=== PATIENT | female | born 1940 | race Caucasian/White ===

== ENCOUNTER 2016-03-24 11:19 | Outpatient (CLI) | payer MEDICARE | END 2016-03-24 11:20 | disposition home or self-care (01) | DX: I73.9 Peripheral vascular disease, unspecified (principal); Z87.891 Personal history of nicotine dependence; R20.9 Unspecified disturbances of skin sensation; M81.0 Age-related osteoporosis without current pathological fracture ==

== ENCOUNTER 2016-03-24 11:22 | Outpatient (CLI) | payer MEDICARE | END 2016-03-24 11:23 | disposition home or self-care (01) | DX: M81.0 Age-related osteoporosis without current pathological fracture (principal) ==

== ENCOUNTER 2016-11-19 14:11 | Outpatient (CLI) | payer MEDICARE ==
--- NOTE | 2016-11-19 17:06 | XRAY Report ---
TWO VIEW CHEST: 11/19/2016 CLINICAL INDICATION: Lung cancer followup. COMPARISON: Chest CT of 05/21/2016. FINDINGS: Frontal and lateral views of the chest demonstrate postoperative changes in the right lung , with volume loss and elevation of the right hemidiaphragm, stable. No new infiltrate, effusion, or pneumothorax is seen. The cardiac silhouette is not enlarged. IMPRESSION: STABLE POSTOPERATIVE CHANGES IN THE RIGHT CHEST. NO SIGNIFICANT INTERVAL CHANGE. JOB #: [id number] EXT JOB #:[id number]
== END 2016-11-19 14:12 | disposition home or self-care (01) ==
LOC: DI 14:11
PROVIDERS: ATTEND Internal Medicine Hematology & Oncology
DX: C34.90 Malignant neoplasm of unspecified part of unspecified bronchus or lung (principal)
CPT/HCPCS: 71020

== ENCOUNTER 2017-01-23 09:07 | Emergency (ER) | payer MEDICARE ==
--- NOTE | 2017-01-23 10:03 | ED Physician Documentation ---
PD HPI ABD PAIN - Stated complaint Stated Complaint: CONSTIPATED FOR 12 DAYS - Chief complaint Chief Complaint: Abd Pain - History obtained from History obtained from: Patient - History of Present Illness Timing - onset: How many days ago (has not had BM for the past 12 days. Has no urge to want to go. Denies numbness, nausea, dysuria, abd pain nor distension. Common is for her to have BM every 1-2 days. No recent illness. No unusual foods.) Timing - duration: Days (12) Timing - details: Gradual onset, Still present Quality: Dull, Pain. No: Cramping, Aching Location: Suprapubic Radiation: No: Chest, Lower back, Left flank, Right flank Improved by: No: Eating, Position Worsened by: No: Eating, Moving, Breathing, Position, Palpation Associated symptoms: No: Weight loss Similar symptoms before: Has not had sx before Review of Systems Constitutional: denies: Fever, Chills Cardiac: denies: Chest pain / pressure, Calf pain GI: reports: Abdominal Pain (mild at times). denies: Abdominal Swelling, Nausea , Vomiting : denies: Dysuria, Frequency PD PAST MEDICAL HISTORY - Past Medical History Cardiovascular: None, Valve disorder Respiratory: Other Neuro: None Endocrine/Autoimmune: None GI: Chronic constipation : None HEENT: None Psych: None Musculoskeletal: None Derm: None - Past Surgical History Past Surgical History: Yes General: Appendectomy, Colonoscopy, Other /[employer] J[employer]NEY[employer]: Hysterectomy HEENT: Cataracts, Tonsil/Adenoidectomy - Present Medications Home Medications: Ambulatory Orders Medication Instructions Recorded Confirmed Multivitamin [Multivitamins] 1 each PO DAILY 11/26/15 01/23/17 Alphalapoic Acid 1 tab PO DAILY 12/21/15 01/23/17 Ascorbic Acid [Vitamin C] 1 tab PO DAILY 12/21/15 01/23/17 Cholecalciferol (Vitamin D3) 1,000 unit PO DAILY 12/21/15 01/23/17 [Vitamin D3] Flaxseed Oil 1,000 mg PO DAILY 12/21/15 01/23/17 Vitamin E 400 unit PO DAILY 12/21/15 01/23/17 B12/Levomefolate Calcium/B-6 1 each PO DAILY 01/23/17 01/23/17 [Foltx Tablet] Ginkgo Biloba [place] Extract [Ginkgo 1 tab PO DAILY 01/23/17 01/23/17 Biloba Extract] Polyethylene Glycol 3350 [Miralax] 17 gm PO Q2H PRN #238 g 01/23/17 - Allergies Allergies/Adverse Reactions: Allergies Allergy/AdvReac Type Severity Reaction Status Date / Time hexachlorophene Allergy blisters Verified 01/23/17 09:13 [From Phisohex] Penicillins Allergy Rash Verified 01/23/17 09:13 metronidazole [From Flagyl] AdvReac Nausea Verified 01/23/17 09:13 Metronidazole HCl * AdvReac Nausea Verified 01/23/17 09:13 [From Flagyl] Sulfa (Sulfonamide AdvReac Respiratory Verified 01/23/17 09:13 Antibiotics) cat gut Allergy Hives Uncoded 05/18/13 20:33 - Social History Does the pt smoke?: Yes Smoking Status: Current every day smoker Does the pt drink ETOH?: No Does the pt have substance abuse?: No - Immunizations Immunizations are current?: No - POLST Patient has POLST: Yes PD ED PE NORMAL - Vitals Vital signs reviewed: Yes - General General: Alert and oriented X 3, Well developed/nourished - HEENT HEENT: Pharynx benign - Neck Neck: Supple, no meningeal sign, No adenopathy - Cardiac Cardiac: RRR, No murmur - Respiratory Respiratory: Clear bilaterally - Abdomen Abdomen: Normal bowel sounds, Soft, Non tender, Non distended, No organomegaly - Female Female : Deferred - Rectal Rectal: Deferred - Back Back: No CVA TTP - Derm Derm: Normal color, Warm and dry - Neuro Neuro: Alert and oriented X 3, No motor deficit, Normal speech Results - Vitals Vitals: Vital Signs - 24 hr 01/23/17 01/23/17 01/23/17 09:08 11:17 12:04 Temperature 36.4 C L 36.6 C Heart Rate 96 77 78 Respiratory 16 14 12 Rate Blood Pressure 157/88 H 155/67 H 129/51 L O2 Saturation 100 98 97 01/23/17 12:40 Temperature 36.6 C Heart Rate 90 Respiratory 17 Rate Blood Pressure 139/57 H O2 Saturation 98 Oxygen O2 Source Room air PD MEDICAL DECISION MAKING - ED course Complexity details: re-evaluated patient (given mineral oil enema with only small stool out. Mag citrate orally. She is not having distension, pain, vomiting. Can work on it outpatient. Nurse reports no stool in vault with the enema. ), considered differential, d/w patient Departure - Departure Disposition: 01 Home, Self Care Clinical Impression: Constipation Qualifiers: Constipation type: slow transit constipation Qualified Code(s): K59.01 - Slow transit constipation Condition: Stable Record reviewed to determine appropriate education?: Yes Instructions: ED Constipation Follow-Up: Gideon Serrano MD [Primary Care Provider] - Prescriptions: Polyethylene Glycol 3350 [Miralax] 17 gm PO Q2H PRN #238 g PRN Reason: Constipation Comments: Drink the other half of the magnesium citrate in 2-3 hours if not having stool as yet. You could then follow it with the MiraLAX one dose every couple of hours until having some stool output. Do not overdo as he do not want to get diarrhea per se. Continue with the MiraLAX once or twice daily for the next week after that. Recheck with primary care if still no stool output into tomorrow. Discharge Date/Time: 01/23/17 12:42
[2017-01-23] MEDS ORDERED: MAGNESIUM CITRATE 296 ML BOTTLE PO ONE (10:26)
[2017-01-23] MEDS ORDERED: MAGNESIUM CITRATE 296 ML BOTTLE PO PRN (10:26)
[2017-01-23] MEDS ORDERED: MINERAL OIL ENEMA 133 ML BOTTLE RC STA (10:26)
[2017-01-23 12:41] VITALS: BP 139/57
== END 2017-01-23 12:42 | disposition home or self-care (01) ==
LOC: ED 09:07
DX: K59.01 Slow transit constipation (principal); F17.200 Nicotine dependence, unspecified, uncomplicated
CPT/HCPCS: 99283; A9270

== ENCOUNTER 2017-11-18 12:33 | Outpatient (CLI) | payer MEDICARE ==
--- NOTE | 2017-11-18 17:10 | CT Report ---
Reason: LUNG CA Procedure Date: 11/18/2017 Accession Number: [id number] / [id number] Procedure: CT - Chest W/O CPT Code: FULL RESULT: EXAM: CT CHEST EXAM DATE: 11/18/2017 12:55 PM. CLINICAL HISTORY: LUNG CA. COMPARISONS: 05/25/2015 and 05/21/2017. TECHNIQUE: Routine helical CT imaging was performed through the chest. IV contrast: None. Reconstructions: Coronal and sagittal. In accordance with CT protocol optimization, one or more of the following dose reduction techniques were utilized for this exam: automated exposure control, adjustment of mA and/or KV based on patient size, or use of iterative reconstructive technique. FINDINGS: Lungs/Pleura: The left apical nodule has increased minimally since most recent previous study, measuring about 9 x 19 mm on series 4 image 12 compared to about 8 x 17 mm on the previous study with comparable measurement. Additionally, there is increased size of a right apical nodule measuring about 8 x 5 mm on image 15 compared to 8 x 4 mm in previous study. An ill-defined region of groundglass density in the right lower lobe on images 23 through 29 has not clearly changed. No definite new lesions. No effusion or pneumothorax. Scarring and volume loss on the right. Mediastinum: Normal heart size. No pericardial effusion. No definite coronary artery calcifications. No lymphadenopathy. Bones: Unremarkable. Visualized Abdomen: Unremarkable. Other: None. IMPRESSION: Increased size of small bilateral apical nodules compatible with metastatic or recurrent neoplasm. RADIA
== END 2017-11-18 12:34 | disposition home or self-care (01) ==
LOC: DI 12:33
PROVIDERS: ATTEND Internal Medicine Hematology & Oncology
DX: C34.90 Malignant neoplasm of unspecified part of unspecified bronchus or lung (principal)
CPT/HCPCS: 71250

== ENCOUNTER 2018-05-01 10:08 | Outpatient (CLI) | payer MEDICARE ==
[2018-05-01 10:29] LABS: HGB - HEMOGLOBIN 11.2 g/dL (12.0-16.0); MEAN CORPUSCULAR HEMOGLOBIN 30.8 pg (27.0-31.0); MEAN CORPUSCULAR HGB CONC 33.7 g/dL (32.0-36.0); MEAN CORPUSCULAR VOLUME 91.3 fL (81.0-99.0); MEAN PLATELET VOLUME 10.7 fL (7.9-10.8); RED BLOOD COUNT 3.65 10^6/uL (4.20-5.40); RED CELL DISTRIBUTION WIDTH 19.1 % (12.0-15.0)
[2018-05-01 10:46] LABS: ALBUMIN 3.9 g/dL (3.2-5.5); ALBUMIN/GLOBULIN RATIO 1.3 (1.0-2.2); BILIRUBIN,TOTAL 1.4 mg/dL (0.2-1.0); CALCIUM 9.5 mg/dL (8.5-10.3); CREATININE 1.1 mg/dL (0.4-1.0); TOTAL PROTEIN 6.9 g/dL (6.7-8.2)
[2018-05-01 11:03] LABS: FERRITIN 243.4 ng/mL (11.0-306.8)
[2018-05-01 12:02] LABS: FOLATE > 49.60 ng/mL (5.90 - >24.8)
--- NOTE | 2018-05-03 14:58 | CT Report ---
Reason: LUNG CA Procedure Date: 05/01/2018 Accession Number: [id number] / [id number] Procedure: CT - CHEST WO CPT Code: FULL RESULT: EXAM: CT CHEST EXAM DATE: 05/01/2018 11:41 AM. CLINICAL HISTORY: Lung cancer. COMPARISONS: Chest w/o contrast 01/11/2018 11:[address] thorax w/ contrast 04/23/2012 2:43 PM. Chest w/o contrast 11/18/2017 12:54 PM. Chest w/o contrast 05/21/2017 1:35 PM. TECHNIQUE: Routine helical CT imaging was performed through the chest. IV contrast: None. Reconstructions: Coronal and sagittal. In accordance with CT protocol optimization, one or more of the following dose reduction techniques were utilized for this exam: automated exposure control, adjustment of mA and/or KV based on patient size, or use of iterative reconstructive technique. FINDINGS: Lungs/Pleura: The suspicious nodule in the left lung apex is now evaluated on image 28 series 6 and image 14 series 4, where it measures 2.7 x 1.4 x 0.9 cm with short-term interval differences possibly due to inspiration/technique. A 4 mm spiculated nodularity in the left upper lobe on image 26 appears similar to May 2017, and is new compared to 2013. There is a sub-solid 0.9 cm left upper lobe nodularity on image 21 series 4 which has not significantly changed going back to 2013. Right lower lobe postoperative changes are stable. Apical nodular scarring appears stable. Nodular thickening of the posterior right lung on image 13, stable. No pleural effusion or pneumothorax. Mediastinum: Atherosclerotic disease without lymphadenopathy. Bones: Unremarkable. Visualized Abdomen: Unremarkable. Other: None. IMPRESSION: Short interval stability of lung nodules. RADIA
== END 2018-05-01 10:09 | disposition home or self-care (01) ==
LOC: DI 10:08
PROVIDERS: ATTEND Internal Medicine Hematology & Oncology
DX: C34.12 Malignant neoplasm of upper lobe, left bronchus or lung (principal); C34.11 Malignant neoplasm of upper lobe, right bronchus or lung
CPT/HCPCS: 36415; 71250; 80053; 82607; 82728; 82746; 83540; 84466; 85027

== ENCOUNTER 2018-05-15 11:11 | Outpatient (CLI) | payer MEDICARE | END 2018-05-15 11:12 | disposition home or self-care (01) | LOC: DI 11:11 | PROVIDERS: ATTEND Physician Assistant Medical | DX: R01.1 Cardiac murmur, unspecified (principal); I35.0 Nonrheumatic aortic (valve) stenosis | CPT/HCPCS: 93306 ==

== ENCOUNTER 2018-06-01 11:14 | Outpatient (CLI) | payer MEDICARE ==
--- NOTE | 2018-06-01 20:41 | Nuclear Medicine Report ---
Reason: LUNB CANCER, INCREASE BONE PAIN Procedure Date: 06/01/2018 Accession Number: [id number] / [id number] Procedure: NM - Bone Whole Body CPT Code: FULL RESULT: EXAM: BONE SCAN EXAM DATE: 06/01/2018 03:28 PM. CLINICAL HISTORY: LUNG CANCER, INCREASE BONE PAIN. COMPARISON: CHEST W/O 05/01/2018 11:40 AM. TECHNIQUE: Following the intravenous administration of 32.7 mCi of technetium 99m MDP and an appropriate delay, a whole-body scan was performed in anterior and posterior projections. Site-specific spot views of the region of interest were obtained in various projections. FINDINGS: Exam Quality: Normal overall osseous radiotracer uptake. Physiological tracer uptake in bilateral collecting systems. Skull: No focal uptake. Thorax: No focal lesions in ribs or sternum. Pelvis: No focal lesions. Spine: No focal uptake in the cervical or thoracic or lumbar spine. IMPRESSION: Normal bone scan. RADIA
== END 2018-06-01 11:15 | disposition home or self-care (01) ==
LOC: DI 11:14
PROVIDERS: ATTEND Nurse Practitioner Adult Health
DX: C34.11 Malignant neoplasm of upper lobe, right bronchus or lung (principal); C34.12 Malignant neoplasm of upper lobe, left bronchus or lung; M89.8X9 Other specified disorders of bone, unspecified site
CPT/HCPCS: 78306

== ENCOUNTER 2018-06-29 12:54 | Outpatient (CLI) | payer MEDICARE ==
[2018-06-29 19:19] LABS: BASOPHILS # (AUTO) 0.1 10^3/uL (0.0-0.1); BASOPHILS % (AUTO) 0.7 %; EOSINOPHILS # (AUTO) 0.1 10^3/uL (0.0-0.7); HGB - HEMOGLOBIN 10.8 g/dL (12.0-16.0); LYMPHOCYTES # (AUTO) 2.3 10^3/uL (1.5-3.5); MEAN CORPUSCULAR HEMOGLOBIN 29.9 pg (27.0-31.0); MEAN CORPUSCULAR HGB CONC 32.4 g/dL (32.0-36.0); MEAN CORPUSCULAR VOLUME 92.3 fL (81.0-99.0); MEAN PLATELET VOLUME 11.9 fL (7.9-10.8); MONOCYTES # (AUTO) 0.6 10^3/uL (0.0-1.0); MONOCYTES % (AUTO) 5.8 %; NEUTROPHILS # (AUTO) 8.2 10^3/uL (1.5-6.6); NEUTROPHILS % (AUTO) 72.5 %; PLT - PLATELET COUNT 344 10^3/uL (130-450); RED CELL DISTRIBUTION WIDTH 20.3 % (12.0-15.0); WHITE BLOOD COUNT 11.3 x10^3/uL (4.8-10.8)
[2018-06-29 19:30] LABS: ALBUMIN 3.8 g/dL (3.2-5.5); ALBUMIN/GLOBULIN RATIO 1.4 (1.0-2.2); CALCIUM 9.7 mg/dL (8.5-10.3); PHOSPHORUS 4.3 mg/dL (2.5-4.6); TOTAL PROTEIN 6.6 g/dL (6.7-8.2)
[2018-06-29 19:47] LABS: PLATELET ESTIMATE, MANUAL NORMAL (130-450,000) (NORMAL); PLATELET MORPHOLOGY RARE GIANT PLATELETS (NORMAL)
== END 2018-06-29 12:55 | disposition home or self-care (01) ==
LOC: LAB.WCP 12:54
PROVIDERS: ATTEND Physician Assistant Medical
DX: C34.91 Malignant neoplasm of unspecified part of right bronchus or lung (principal); M79.10 Myalgia, unspecified site; J34.89 Other specified disorders of nose and nasal sinuses
CPT/HCPCS: 36415; 80053; 82550; 84100; 85025

== ENCOUNTER 2018-07-26 10:39 | Outpatient (CLI) | payer MEDICARE ==
--- NOTE | 2018-07-26 14:42 | CT Report ---
Reason: LUNG CA Procedure Date: 07/26/2018 Accession Number: [id number] / [id number] Procedure: CT - CHEST WO CPT Code: FULL RESULT: EXAM: CT CHEST WITHOUT IV CONTRAST EXAM DATE: 07/26/2018 11:01 AM. CLINICAL HISTORY: Lung cancer. COMPARISONS: 05/01/2018, 05/21/2017, 04/23/2012. TECHNIQUE: Routine helical CT imaging was performed through the chest. IV contrast: None. Reconstructions: Coronal and sagittal. In accordance with CT protocol optimization, one or more of the following dose reduction techniques were utilized for this exam: automated exposure control, adjustment of mA and/or KV based on patient size, or use of iterative reconstructive technique. FINDINGS: Lungs/Pleura: Right lun. 10 x 10 x 13 mm irregular mass right upper lobe (reference series 4 image 19) shows progressive increase in volume over serial exams and is new since study of 2012; most recently it measured 7 x 7 x 10 mm. 2. 2.3 cm ground-glass opacity/nodule right upper lobe (reference series 7 image 44) unchanged since 05/21/2017, but new since 2012. 3. Stable operative changes after wedge resections with multiple lung staple lines and mild right-sided volume loss. Stable apical pleural thickening/scar. Left lun. 27 x 14 x 10 mm mixed solid/semisolid pulmonary nodule is unchanged since 05/21/2017 but increased in size since 2012. 2. Stable 8 mm semisolid nodule left upper lobe (series 4 image 24) since 2012. 3. Stable irregular 4 mm nodule left upper lobe (series 4 image 30), no change since 05/21/2017, new since 2012. Mediastinum: Normal. No adenopathy or masses. The heart and great vessels are normal. Bones: Unremarkable. Visualized Abdomen: Stable mild prominence of the extrahepatic common bile duct at 7 mm. Other: None. IMPRESSION: 1. Bilateral imaging progression of solid and semisolid pulmonary nodules/masses as described, consistent with progression of malignancy. Most of the described findings show very slow progression only evident when comparing back to 2013; however, the most rapidly increasing/concerning mass is in the right upper lobe, as described (series 4 image 19). RADIA
== END 2018-07-26 10:40 | disposition home or self-care (01) ==
LOC: DI 10:39
PROVIDERS: ATTEND Internal Medicine Hematology & Oncology
DX: C34.12 Malignant neoplasm of upper lobe, left bronchus or lung (principal); C34.11 Malignant neoplasm of upper lobe, right bronchus or lung
CPT/HCPCS: 71250

== ENCOUNTER 2019-11-17 08:42 | Day surgery (SDC) | payer MEDICARE ==
[2019-11-17] MEDS ORDERED: LACTATED RINGERS 1,000 ML IV ONE ×2 (09:19→11:15)
--- NOTE | 2019-11-17 10:00 | ANESTHESIA ---
Pre-Anesthesia VS, & Labs - Diagnosis change in bowel habits, prolapsing hemorrhoids. - Procedure colonoscopy with hemorrhoid banding Vital Signs: Temp Pulse Resp BP Pulse Ox 36.3 C L 73 16 193/95 H 100 11/17/19 09:04 11/17/19 09:04 11/17/19 09:04 11/17/19 09:04 11/17/19 09:04 Height 5 ft 4 in Weight (kg) 50.9 kg Body Mass Index 20.1 - NPO >8 hours - Is Patient ?: No Home Medications and Allergies Home Medications: Ambulatory Orders Alpha Lipoic Acid 100 mg PO DAILY 11/07/19 Vitamin B Complex 1 each PO DAILY 11/07/19 Multivitamin [Multivitamins] 1 each PO DAILY 11/26/15 Ascorbic Acid [Vitamin C] 1 tab PO DAILY 12/21/15 Cholecalciferol (Vitamin D3) [Vitamin D3] 3,000 unit PO DAILY 12/21/15 Vitamin E 400 unit PO DAILY 12/21/15 Ginkgo Biloba [place] Extract [Ginkgo Biloba Extract] 1 tab PO DAILY 01/23/17 Ubidecarenone/Vit E Acet [Co Q-10 100 mg Softgel] 1 cap PO DAILY 06/07/18 Alpha Lipoic Acid 100 mg PO DAILY 11/07/19 Vitamin B Complex 1 each PO DAILY 11/07/19 Allergies/Adverse Reactions: Allergies Allergy/AdvReac Type Severity Reaction Status Date / Time hexachlorophene Allergy blisters Verified 10/24/19 10:51 [From Phisohex] Penicillins Allergy Rash Verified 10/24/19 10:51 metronidazole [From Flagyl] AdvReac Nausea Verified 10/24/19 10:51 Metronidazole HCl * AdvReac Nausea Verified 10/24/19 10:51 [From Flagyl] Sulfa (Sulfonamide AdvReac Respiratory Verified 10/24/19 10:51 Antibiotics) cat gut Allergy Hives Uncoded 10/24/19 10:51 Anes History & Medical History - Anesthetic History Anesthesia Complications: reports: No previous complications - Medical History Cardiovascular: reports: Murmur, Valve disorder (Mild aortic stenosis, 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%) Pulmonary: reports: Emphysema, Shortness of breath Gastrointestinal: reports: Colon polyps, Chronic constipation, Hemorrhoids Urinary: reports: None Neuro: reports: None Musculoskeletal: reports: Osteoarthritis Endocrine/Autoimmune: reports: None Skin: reports: Rosacea Smoking Status: Current every day smoker (1/2 pk per day for 60 years) - Surgical History General: Appendectomy, Colonoscopy, Other Eyes Ears Nose Throat (EENT): Cataracts, Tonsil/Adenoidectomy Gynecologic: Hysterectomy Exam General: Alert, Oriented x3, Cooperative, No acute distress Dental: Poor dentition Mouth Openin Fingerbreadth Neck Mobility: Normal Mallampati classification: II Respiratory: Lungs clear, Normal breath sounds, No respiratory distress, No accessory muscle use Cardiovascular: Regular rate, Normal S1, Normal S2, No murmurs Mental/Cognitive Status: Alert/Oriented X3, Normal for patient Plan Anesthesia Type: MAC Consent for Procedure(s) Verified and Reviewed: Yes Code Status: Attempt Resuscitation ASA classification: 2-Mild systemic disease Is this case an emergency?: No
--- NOTE | 2019-11-17 11:24 | ANESTHESIA POST OP EVALUATION ---
Anesthesia Post Eval - Post Anesthesia Eval Vitals: Last Vital Signs Temp 36.3 C L 11/17/19 09:04 Pulse 73 11/17/19 09:04 Resp 16 11/17/19 09:04 BP 193/95 H 11/17/19 09:04 Pulse Ox 100 11/17/19 09:04 CV Function Including HR & BP: positive: Stable Pain Control: positive: Satisfactory Nausea & Vomiting: positive: Negative Mental Status: positive: Baseline Respiratory Status: Airway Patent Hydration Status: Satisfactory Anesthesia Complications: positive: None
[2019-11-17 12:05] VITALS: BP 145/75
--- NOTE | 2019-11-24 16:08 | OPERATIVE REPORT ---
Operative Report - General Procedure Date: 11/17/19 Planned Procedure: Internal hemorrhoid banding Pre-Op Diagnosis: Prolapsing internal hemorrhoids Procedure Performed: Internal hemorrhoid banding Post Op Diagnosis: Prolapsing internal hemorrhoids - Procedure Note Primary Surgeon: Marc Anesthesia Provider: BRAYDON Kamara Anesthesia Technique: MAC Pathology: None Estimated Blood Loss (mL): 0 Complications: None apparent - Other Other Information/Narrative: Colonoscopy was completed immediately prior to the banding procedure. Timeout was done at the start of the colonoscopy procedure.The patient remained sedated with monitored anesthesia care at this time. All elements of the surgical safety checklist were followed before, during, and after this procedure. The anoscope with obturator was lubricated and placed in the patient's anal canal. The obturator was removed and the slots aligned to allow access to 3 column internal hemorrhoids. The device, the [employer] multi band ligator-short shot-was placed into the anal canal. The tip of the device was placed in contact with the tissue to be treated beginning at the 4 o'clock position. The suction port was closed. A single band was deployed and the suction port released.The band was noted to be in place.We next addressed the hemorrhoid complex at 7:00.The tip of the device was placed in contact with the tissue, the suction port covered, a band deployed, the suction port released. Again we were able to see that the band was in place.We next addressed the hemorrhoid at the 11 o'clock position. This was the smallest of the 3. The tip of the device was placed in contact with the tissue, the suction port covered, a band deployed, the suction port released. Again we were able to see that the band was in place.Examination of the anal count canal revealed all [address] The anoscope was removed and the procedure concluded. The patient tolerated the procedure well. She was allowed awaken from sedation and taken to the post anesthesia care unit in good condition.
== END 2019-11-17 08:43 | disposition home or self-care (01) ==
LOC: SDS 08:42
PROVIDERS: ATTEND Surgery
PROC: 0DBP8ZZ Excision of Rectum, Via Natural or Artificial Opening Endoscopic (ICD-10-PCS; 2019-11-17)
PROC: 06LY3CC Occlusion of Hemorrhoidal Plexus with Extraluminal Device, Percutaneous Approach (ICD-10-PCS; 2019-11-17)
PROC: 0DBN8ZZ Excision of Sigmoid Colon, Via Natural or Artificial Opening Endoscopic (ICD-10-PCS; principal; 2019-11-17 10:00)
DX: K63.5 Polyp of colon (principal); K62.1 Rectal polyp; K64.8 Other hemorrhoids; K57.30 Diverticulosis of large intestine without perforation or abscess without bleeding; K64.4 Residual hemorrhoidal skin tags; I10 Essential (primary) hypertension; J43.9 Emphysema, unspecified; C34.90 Malignant neoplasm of unspecified part of unspecified bronchus or lung; M32.9 Systemic lupus erythematosus, unspecified; I77.6 Arteritis, unspecified; R01.1 Cardiac murmur, unspecified; Z90.2 Acquired absence of lung [part of]; F17.210 Nicotine dependence, cigarettes, uncomplicated
CPT/HCPCS: 45380; 46221; J7120

== ENCOUNTER 2020-04-30 10:29 | Outpatient (CLI) | payer MEDICARE ==
--- NOTE | 2020-04-30 11:19 | CT Report ---
PROCEDURE: CHEST WO INDICATIONS: LUNG CA TECHNIQUE: Noncontrast 5 mm thick sections acquired from the pulmonary apices to the posterior costophrenic angl es. 7 mm thick coronal and sagittal MIP reformats were then acquired. For radiation dose reduction, the following was used: automated exposure control, adjustment of mA and/or kV according to patient size. COMPARISON: 10/25/2019, 04/19/2019, 12/13/2018, 07/26/2018. FINDINGS: Image quality: Excellent. Redemonstrated right apical spiculated nodule image 61/4 appears increased in size since the most rec ent prior study now measuring 1.6 x 1.3 cm, previously 1.5 x 1.1 cm. Right posterior apical pleural n odule measuring 1.7 x 1.4 cm, previously 1.5 x 0.8 cm is increased. Additional medial left apical nodule measuring 1.5 x 1.1 cm, previously 1.5 x 1.1 cm, grossly unchang ed. Elsewhere, no acute consolidation is seen. Diffuse peribronchial cuffing suggestive of nonspecific br onchitis and/or reactive airways disease. Postsurgical changes related to previous right partial pneu monectomy. Scattered subsegmental scarring/atelectasis. No acute consolidation. Diffuse emphysema an d chronic ectasis. Mediastinum: Heart size is normal. No pericardial effusion. No mediastinal adenopathy by size crit eria. Thoracic aorta and central pulmonary arteries are normal in size. Esophagus is normal in marie samantha. No hiatal hernia. Bones and chest wall: No suspicious bony lesions. No vertebral body compression fractures. No axil melanie or supraclavicular adenopathy by size criteria. The thyroid is normal in size. Abdomen: Visualized upper abdominal solid organs and bowel loops appear normal in the absence of con trast. IMPRESSION: Slight increase in right apical spiculated nodule, and additional posterior right upper lobe pleural nodule, since 10/25/2019. Findings suggest active bronchogenic neoplasm/metastatic disease. Previous r ight partial pneumonectomy Additional left upper lobe spiculated nodule appears grossly unchanged. Diffuse emphysematous changes and bronchiectasis as before. Diffuse peribronchial cuffing suggestive of nonspecific bronchitis and/or reactive airways disease. Reviewed by: Idris Orantes MD on 04/30/2020 11:18 AM PST Approved by: Idris Orantes MD on 04/30/2020 11:18 AM PST Station ID: [id number]
== END 2020-04-30 10:30 | disposition home or self-care (01) ==
LOC: DI 10:29
PROVIDERS: ATTEND Internal Medicine Hematology & Oncology
DX: C34.90 Malignant neoplasm of unspecified part of unspecified bronchus or lung (principal); R91.1 Solitary pulmonary nodule; J43.9 Emphysema, unspecified; J47.9 Bronchiectasis, uncomplicated

== ENCOUNTER 2020-10-29 12:55 | Outpatient (CLI) | payer MEDICARE ==
--- NOTE | 2020-10-30 14:44 | CT Report ---
PROCEDURE: CHEST WO INDICATIONS: LUNG CA TECHNIQUE: Noncontrast images were acquired from the pulmonary apices to the posterior costophrenic angles. Mul tiplanar MIP reformats were then acquired. For radiation dose reduction, the following was used: au tomated exposure control, adjustment of mA and/or kV according to patient size. COMPARISON: CT chest 04/30/2020, 10/25/2019, 04/19/2019. FINDINGS: Image quality: Excellent. Lungs and pleura: Postsurgical changes are redemonstrated status post right lower lobectomy. There i s progressive increase in size of a right upper lobe suprahilar spiculated nodule measuring up to 2.7 x 1.7 cm in transverse dimension on series 4 image 61 compared to 1.6 x 1.3 cm on the previous study . There is pleural thickening redemonstrated within the lung apices I laterally with a posterior nodu lar component measuring up to approximately 1.6 x 1.0 cm on series 4 image 37 compared to possible 0. 7 x 1.4 cm previously. The findings are similar in size compared to the previous exam given differenc es in slice acquisition. Medially within the left upper lobe, there is a subpleural nodule measuring approximately 1.6 x 1.1 cm on series 4 image 52 which appears similar in size compared to the prior s tudies. Within the left upper lobe, there is a nodule on series 4 image 123 measuring up to 0.8 cm wh ich appears progressively increased in size compared to the recent prior studies. A few indistinct ad ditional groundglass opacities within the lungs appears similar to the prior study. Small areas of pl eural thickening are also redemonstrated bilaterally. There are mild centrilobular emphysematous card ges. Mediastinum: Heart size is normal. No pericardial effusion. No mediastinal adenopathy by size crit eria. Thoracic aorta and central pulmonary arteries are normal in size. Esophagus is normal in marie samantha. There is a small hiatal hernia. Bones and chest wall: No suspicious bony lesions. No vertebral body compression fractures. No axil melanie or supraclavicular adenopathy by size criteria. There are surgical clips in the right breast. T he thyroid demonstrates no focal dominant nodules. Abdomen: Visualized upper abdominal solid organs and bowel loops appear normal in the absence of con trast. IMPRESSION: 1. Progressive increase in size of a suprahilar nodule in the right upper lobe consistent with progre ssion of recurrent or metastatic disease. 2. Progressive increase in size of a left upper lobe 0.8 cm nodule consistent with progression of met astatic disease. 3. Bilateral pleural thickening including a nodular component posteriorly in the right apex as well a s a subpleural nodule in the left upper lobe appears similar to the recent prior studies. The finding s are nonspecific and may represent posttreatment changes but recurrent or metastatic disease are not excluded. 4. No evidence of lymphadenopathy in the chest by size criteria. Reviewed by: Robert Jones MD on 10/30/2020 2:43 PM PDT Approved by: Robert Jones MD on 10/30/2020 2:43 PM PDT Station ID: [id number]
== END 2020-10-29 12:56 | disposition home or self-care (01) ==
LOC: DI 12:55
PROVIDERS: ATTEND Physician Assistant
DX: C34.90 Malignant neoplasm of unspecified part of unspecified bronchus or lung (principal); R91.8 Other nonspecific abnormal finding of lung field

== ENCOUNTER 2020-11-15 10:30 | Outpatient (CLI) | payer MEDICARE | END 2020-11-15 23:59 | disposition home or self-care (01) | LOC: COV 10:30 | PROVIDERS: ATTEND Physician Assistant Medical | DX: Z20.822 Contact with and (suspected) exposure to COVID-19 (principal) ==

== ENCOUNTER 2020-11-15 10:42 | Outpatient (CLI) | payer MEDICARE ==
[2020-11-15 18:16] LABS: CALCIUM 10.6 mg/dL (8.5-10.3); CREATININE 0.9 mg/dL (0.4-1.0); POTASSIUM 4.3 mmol/L (3.5-5.0)
== END 2020-11-15 23:59 | disposition home or self-care (01) ==
LOC: LAB.WCP 10:42
PROVIDERS: ATTEND Physician Assistant Medical
DX: I10 Essential (primary) hypertension (principal); Z20.822 Contact with and (suspected) exposure to COVID-19
CPT/HCPCS: 36415; 80048; U0004

== ENCOUNTER 2020-11-23 10:15 | Outpatient (CLI) | payer MEDICARE | END 2020-11-23 23:59 | disposition home or self-care (01) | LOC: LAB.WCP 10:15 | PROVIDERS: ATTEND Physician Assistant Medical | DX: E83.52 Hypercalcemia (principal) | CPT/HCPCS: 36415; 83970 ==

== ENCOUNTER 2020-11-29 10:37 | Outpatient (CLI) | payer MEDICARE ==
--- NOTE | 2020-11-29 11:56 | XRAY Report ---
PROCEDURE: Ribs w/PA Chest RT INDICATIONS: RIB PAIN RIGHT SIDED TECHNIQUE: 4 views of the right ribs were acquired, along with a single view chest. COMPARISON: CT chest dated 10/29/2020 FINDINGS: Surgical changes and devices: None. Bones and chest wall: No fractures or dislocations. No suspicious bony lesions. Overlying soft tis sues appear unremarkable. Lungs and pleura: Ill-defined right apical pulmonary density compatible with irregular apical densit y seen on comparison CT. Stable posterior changes of the right hemithorax. Irregular density over the medial aspect of the left apex also compatible with density seen on comparison CT. Stable pleural th ickening of the right costophrenic angle. No pneumothorax. Mediastinum: Mediastinal contours appear stable. Heart size is normal. IMPRESSION: No acute right-sided rib fractures correlating with skin markers denoting areas of patient's pain. No suspicious osseous lesions. Stable postsurgical changes of the right hemithorax. Stable nodular densities of the bilateral lung apices. No acute airspace disease. Reviewed by: Adolfo Valle MD on 11/29/2020 11:55 AM PDT Approved by: Adolfo Valle MD on 11/29/2020 11:55 AM PDT Station ID: [id number]
== END 2020-11-29 10:38 | disposition home or self-care (01) ==
LOC: DI 10:37
PROVIDERS: ATTEND Physician Assistant Medical
DX: R91.8 Other nonspecific abnormal finding of lung field (principal); R07.81 Pleurodynia

== ENCOUNTER 2020-12-17 11:05 | Outpatient (CLI) | payer MEDICARE ==
--- NOTE | 2020-12-17 17:06 | CONSULTATION NOTE ---
Palliative Care Consultation - Referral Referring Provider: Viki Padilla PA-C Time of Visit: 5067-5724 Referral setting: Home Referral Reason: Lung Cancer/Rib pain/Advanced Care Planning - Information Sources Records reviewed: Previous records reviewed History/Review of Systems obtained from: Patient, Family (daughter, Jia) Exam limitations: Clinical condition (+CHEHALIS) - History of Present Illness Brief History of Present Illness: This is an 80-year-old female who was seen and evaluated today within her home due to recurrent lung cancer, right rib pain, and advance care planning with her daughter, Jia present. 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 She completed chemotherapy and resulted in remission and 02/2013. The patient perceives after chemotherapy she developed full body myalgias, loss of taste, loss of smell and is easily fatigued. She underwent a right upper lobe wedge resection 04/2013. SBRT to the left upper lobe lung lesion 02/2014. Then right upper lobe SBRT in September 2018. She was noted to have progressing bilateral upper lobe lung cancer with last systemic therapy September 2017 through June 2018 with Alecensa. The patient had a poor tolerance with this medication reporting muscle spasms, increased myalgias and lack of a bowel movement for 2 months. There is further noted progression in October 2019 and declined intervention. Further progression was then again noted to the right upper hilar lesion 11/02/2020. The patient presently reports minimal symptom burden only with residual right chest wall pain and fatigue and arthralgias that she has learned to live with since her chemotherapy. She reports in crease right chest wall pain that presents under the right axilla that travels right along under her breast to the sternum. She does not have this at rest. It is aggravated by motion such as vacuuming or gardening. She is able to position just so in order to relieve the discomfort with pressure while in bed and after several minutes it resolves. She does not take any oral medication for this to relieve her pain. Previously, she was prescribed a prescription for gabapentin for this discomfort after her lung resection however, she threw this away. The patient continues to be an active smoker. She reports increased productive cough with her phlegm intermittently being yellow. Afebrile. Generalized fatigue. Not on oxygen. She has a history of COPD diagnosed in 2013. The patient was treated in October 2020 with Zithromax for sinus symptoms. The patient is afebrile. Denies dental pain, increased facial pressure, but does however report nasal congestion. She has a history of a deviated septum. She had sinus surgery at approximately 7 years of age and none since that time. Reviewed signs and symptoms with the patient and daughter regarding acute sinusitis. Patient is presently not taking any nasal sprays. She previously tried Flomax and did not find this effective for her symptoms. Patient is thin, well-groomed, and articulate seen in her dining room table with no evidence of acute distress. Medical/Surgical History - Past Medical History Cardiovascular: reports: Murmur, Valve disorder (Mild aortic stenosis, EF 60%) Respiratory: reports: COPD (2013), Shortness of breath Neuro: None Neuro: reports: None Endocrine/Autoimmune: reports: None GI: reports: Colon polyps, Chronic constipation, Hemorrhoids, Other (Diverticulitis) : reports: None HEENT: reports: Chronic vision loss, Chronic hearing loss Psych: reports: None Musculoskeletal: reports: Osteoarthritis Derm: reports: Rosacea MRSA Hx?: No Other Past Medical History: Not COVID-19 vaccinated due to sensitivities to prior medications - Past Surgical History General: reports: Appendectomy (2001), Colonoscopy, Other /[employer]: reports: section (x2), Hysterectomy (with BSO), Other (RIght breast lumpectomy) HEENT: reports: Cataracts, Tonsil/Adenoidectomy Other past surgical history: Right upper lobectomy 04/2013; SBRT left upper lobe 02/2014 - Substance History Use: Uses substance without health or social issues: Tobacco (Smokes 1/2 pdd of Cypriot spiritis and has been smoking since age 20.), Other (Drinks caffinated coffee daily) Social History - Living Situation Living arrangement: At home Living Situation: With family (daughter, Jia moved from [place] in with patient in December 2020) Support System: Patient is . She was the primary caregiver for her , who had Alzheimer's dementia until his on hospice. The patient and her spouse have 2 daughters, Jia is presently living with the patient to provide assistance. The patient's other daughter is residing in [place]. The patient is living in a home that is 2900 square feet that she perceives as to "big for her." She enjoys gardening. There is a cat in the home. The patient has always been "a do her" and therefore pushes herself to do things. Family History - Family History Family History: Mother: , Father: Family History Comment/Other: Mother 95, dementia; Father 72, CVA; daughter with lupus. Medications/Allergies - Medications Home Medications: Ambulatory Orders Medication Instructions Recorded Confirmed Multivitamin [Multivitamins] 1 each PO DAILY 11/26/15 12/18/20 Ascorbic Acid [Vitamin C] 1 tab PO DAILY 12/21/15 12/18/20 Cholecalciferol (Vitamin D3) 2,000 unit PO DAILY 12/21/15 12/18/20 [Vitamin D3] Ubidecarenone/Vit E Acet [Co Q-10 1 cap PO DAILY 06/07/18 12/18/20 100 mg Softgel] Alpha Lipoic Acid 200 mg PO DAILY 11/07/19 12/18/20 Vitamin B Complex 1 each PO DAILY 11/07/19 12/18/20 Rvmqhvo-Msn-Adnv 1 tab PO DAILY 12/18/20 Eyebright 1 tab PO Q48H 12/18/20 - Allergies Allergies/Adverse Reactions: Allergies Allergy/AdvReac Type Severity Reaction Status Date / Time hexachlorophene Allergy blisters Verified 08/07/20 13:32 [From Phisohex] Penicillins Allergy Rash Verified 08/07/20 13:32 metronidazole [From Flagyl] AdvReac Nausea Verified 08/07/20 13:32 Metronidazole HCl * AdvReac Nausea Verified 08/07/20 13:32 [From Flagyl] Sulfa (Sulfonamide AdvReac Respiratory Verified 08/07/20 13:32 Antibiotics) cat gut Allergy Hives Uncoded 08/07/20 13:32 Review of Systems - Constitutional Constitutional: reports: Fatigue, Weight stable. denies: Fever, Chills, Poor appetite - Eyes Eyes: denies: Irritation - Ears, Nose & Throat Ears, Nose & Throat: reports: Hearing loss, Nasal congestion. denies: Hearing aids, Nasal pain, Nasal discharge, Sore throat - Cardiovascular Cardiovascular: reports: Chest pain (right chestwall pain, see HPI), Decr. exercise tolerance. denies: Edema - Respiratory Respiratory: reports: Cough (intermittent), Sputum production (yellow, intermittent). denies: Wheezing - Gastrointestinal Gastrointestinal: reports: Constipation (controlled, reports history of chronic constipation), Good appetite. denies: Abdominal pain, Nausea, Vomiting - Genitourinary Genitourinary: denies: Dysuria - Musculoskeletal Musculoskeletal: denies: Joint swelling, Assistive devices, Transfer issues - Integumentary Integumentary: denies: Rash - Neurological Neurological: denies: General weakness, Headache - Psychiatric Psychiatric: denies: Depression - Endocrine Endocrine: reports: Intolerance to cold - Hematologic/Lymphatic Hematologic/Lymph: denies: Recurrent infections - All Other Systems All Other Systems: reports: Reviewed and negative Palliative Care Pain: Comment (right chestwall with activity does not take any OTC medication for the pain. Was prescribed gabapentin in the past but did not attempt a tri al.) Tiredness/Fatigue: Mild (1-3) Drowsiness/Sedation: None Nausea: None Anorexia: None Dyspnea: Mild (1-3) Depression: None Anxiety: None Feelings of wellbeing/Perceived Quality of Life: Excellent Sleep: Sleeps well Performance Status: Patient is ambulatory. Able to perform ADLs. She tires easily and performing household tasks such as cleaning that aggravate her right chest wall pain. Able to prepare meals. Continent of bowel and bladder.No history of falls. Able to ambulate without an assistive device. - Palliative Care Discussion: Patient unfortunately has experienced recurrence of her bilateral upper lobe lung cancer that has been progressing as noted on most recent CT of the chest in October 2020. At the present time, the patient is experiencing minimal symptom burden related to this diagnosis and given the laid out options for potential management such as an ALK inhibitor this is not something that she wishes to return back As she perceives this class of medication being the cause of many symptoms and side effects that impaired her quality of life and not something that she wishes to return to. She recognizes that if she opts not to treat that she runs the chance of allowing for further disease progression and limited interventions. At the present time, she wishes to enjoy the upcoming holidays without any interventions. She does acknowledge that if she begins to have increased symptom burden then she would reconsider reevaluation and treatment. At the present time, she plans to enjoy time with her family and the holidays and reconvene with her oncologist in March 2020. The patient and her daughter are vacillating back and forth regarding obtainment of a PET scan. However, if not considering treatment or evaluating for treatment unclear if this would provide benefit and did offer to reach out to patient's oncologist regarding this request however, at the present time both the patient and the daughter wish to contemplate before moving forward with this request. The patient continues with some mild underlying COPD symptoms such as chronic cough and reviewed pathophysiology of COPD and encouragement of smoking cessation. However, the patient perceives that she has been exposed to tobacco smoke her entire life including in childhood and unclear if able to perform smoking cessation. Did introduce utilization of hydrocodone/acetaminophen not only for antitussive properties but also for pain in her right rib cage with increased activity at a very low dose. Patient wishes to consider at the present time. She prefers utilizing [id number] supplements versus prescribed medications. She does reference "normal persons healing therapy" as a guide for her herself regarding her symptom management with supplementation. Impression and Recommendations - Palliative Care Impression: This is an 80-year-old female with continue tobacco abuse, right chest wall pain, with recurrent right upper lobe cancer with overall minimal symptom burden. Palliative care continue you to build rapport, provide goals of care, care coordination and symptom management and anticipatory guidance. Recommendations/Counseling Done: 1. Right chestwall pain. Right axilla to sternal mid-chest. Muscular skeletal as pronounced after increased activity versus neuropathic component due to history of lung resection with residual effects. Patient previously prescribed gabap entin but declined utilization. Is not taking any [id number] medications. Did introduce today utilization of hydrocodone 5 mg/acetaminophen 325 mg taking half a tablet every 6 hours as needed for pain as well as antitussive properties for cough. Patient to contemplate and consider and palliative care to follow-up regarding the patient's decision. CTM. 2. Acute sinusitis. Unlikely to be bacterial as without severe symptoms (fever, facial or dental pain, or worsening symptoms following a URI). Discussed with patient symptom management: hydration, use of saline nasal spray using 10 sprays each nostril first thing in the morning and may use tylenol for discomfort. Advaised to call if increased facial pain, fever, chills, or any new concerning symptoms. 3. COPD. No history of exacerbations. Not on oxygen therapy. Not on maintenance inhalers or rescue inhalers. Reviewed pathophysiology of COPD with the patient and increased cough related to underlying COPD. Did discuss utilization of hydrocodone/acetaminophen for antitussive properties in the future. Patient wishes to have further exploration regarding management would make recommendation to follow-up with PCP and obtainment of PFTs. 4. Recurrent and right upper lobe lung cancer. ALK gene mutation positive. Patient presently with minimal symptom burden. Presently opting to not treat and wait until the holidays to reconvene and reassess with her oncologist. We'll reach out to the patient's oncologist regarding prognostication regarding the different interventions that have been suggested and potential consequences if the patient were to go without treatment. The patient is aware if she goes without treatment that this could lead to disease progression and limit her treatment options. 5. Advanced care planning. Will continue to build rapport, explore goals of care, and tease out the patient's expectations moving forward. Will also need to evaluate if the patient has a POLST within the home as well as advance care directives. Total time spent 85 minutes with greater than 50% of this spent in counseling and coordination of care with patient and daughterJia; review of palliative philosophy; disease progression; review of pain and symptom management and anticipatory guidance. Disclaimer: The chart note was formulated using voice recognition technology and unfortunately sound alike errors may occur.
== END 2020-12-17 11:06 | disposition home or self-care (01) ==
LOC: PC 11:05
PROVIDERS: ATTEND Nurse Practitioner Family
DX: Z51.5 Encounter for palliative care (principal); C34.12 Malignant neoplasm of upper lobe, left bronchus or lung; C34.11 Malignant neoplasm of upper lobe, right bronchus or lung; R07.89 Other chest pain; J44.9 Chronic obstructive pulmonary disease, unspecified; F17.210 Nicotine dependence, cigarettes, uncomplicated; R53.83 Other fatigue; I35.0 Nonrheumatic aortic (valve) stenosis; K59.09 Other constipation; H54.7 Unspecified visual loss; H91.90 Unspecified hearing loss, unspecified ear; J01.90 Acute sinusitis, unspecified; Z90.2 Acquired absence of lung [part of]; Z79.899 Other long term (current) drug therapy
CPT/HCPCS: 99345

== ENCOUNTER 2021-01-10 10:45 | Outpatient (CLI) | payer MEDICARE ==
--- NOTE | 2021-01-10 19:16 | CONSULTATION NOTE ---
Palliative Care Follow Up - Referral Referring Provider: Viki Padilla PA-C/Dr. Drew Mclain Time of Visit: [id number] Referral setting: Home Referral Reason: Lung Ca/COPD/Nasal congestion - Information Sources Records reviewed: Previous records reviewed History/Review of Systems obtained from: Patient, Family (daughter Jia) Exam limitations: Clinical condition (+NULATO) - History of Present Illness Update Brief HPI Update: This is an 80-year-old female who was seen and evaluated within her home due to recurrent lung cancer, nasal congestion and wheezing with her daughter, Jia present. 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 She completed chemotherapy and resulted in remission in 02/2013. She perceives that she developed full body [place]'s, loss of taste loss of smell and is easily fatigued after undergoing chemotherapy. She underwent a right upper lobe wedge resection 02/2014 and SBRT to left upper lobe lung lesion 02/2014. Then right upper lobe SBRT in September 2018. She was noted to have progression of bilateral upper lobe lung cancer with last systemic therapy September 2017 through June 2018 with Alecensa For which she had poor tolerance. Further progression was then noted to right upper hilar lesion 11/02/2020. The patient has been undecided regarding starting therapy and met with oncologist, Dr. Mclain with her daughter on 12/31 And patient continues to want to hold off for any further interventions until after the new year however, due to hypercalcemia a nuclear bone scan was ordered for evaluation of bone metastases. Her sinus symptoms had improved until she stopped using her saline nasal spray. Reports some increased congestion and advised to resume her saline nasal spray. Has had several courses of antibiotic therapy. The patient continues to report to feeling well overall. She continues to utilize her [id number] supplementation that she has researched. She does have a history of right rib pain status post right upper lobe wedge resection that will be exacerbated when she performs access tasks. Today, she r eports that this is feeling fine and continues to decline Rx for hydrocodone/acetaminophen to utilize as an antitussive and for pain. She prefers not to take pain medication if at all possible. Managed with Tylenol if needed. Patient continues to be an active smoker. Reports approximately 10 cigarettes/day possibly. She does have a productive cough at times with phlegm intermittently. Able to ambulate without shortness of breath. Afebrile. Not on oxygen supplementation. Diagnosed with COPD in 2013. Not on any inhalations. Daughter is reporting noting a intermittent wheeze the last few days. Patient does not have a bronchodilator within the home. 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 Not COVID-19 vaccinated due to multiple sensitivities to prior medications. Developed diffuse, persistent rashes after radiation therapy in the past. Social History - Living Situation Living arrangement: At home Living Situation: With family (daughter, Jia moved from [place] in with patient in December 2020) Support System: Patient is . She was the primary caregiver for her , who had Alzheimer's dementia until his on hospice. The patient and her spouse have 2 daughters, Jia is presently living with the patient to provide assistance. The patient's other daughter is residing in [place]. The patient is living in a home that is 2900 square feet that she perceives as to "big for her." She enjoys gardening. There is a cat in the home. Medications/Allergies - Medications Home Medications: Ambulatory Orders Medication Instructions Recorded Confirmed Multivitamin [Multivitamins] 1 each PO DAILY 11/26/15 12/31/20 Ascorbic Acid [Vitamin C] 1 tab PO DAILY 12/21/15 12/31/20 Cholecalciferol (Vitamin D3) 2,000 unit PO DAILY 12/21/15 12/31/20 [Vitamin D3] Ubidecarenone/Vit E Acet [Co Q-10 1 cap PO DAILY 06/07/18 12/31/20 100 mg Softgel] Alpha Lipoic Acid 200 mg PO DAILY 11/07/19 12/31/20 Vitamin B Complex 1 each PO DAILY 11/07/19 12/31/20 Fygtoxb-Rfd-Lmxk 1 tab PO DAILY 12/18/20 12/31/20 Eyebright 1 tab PO Q48H 12/18/20 12/31/20 Albuterol Sulfate [Proair Hfa 2 puffs IH Q4HR PRN 01/11/21 01/11/21 Inhaler] - Allergies Allergies/Adverse Reactions: Allergies Allergy/AdvReac Type Severity Reaction Status Date / Time hexachlorophene Allergy blisters Verified 08/07/20 13:32 [From Phisohex] Penicillins Allergy Rash Verified 08/07/20 13:32 metronidazole [From Flagyl] AdvReac Nausea Verified 08/07/20 13:32 Metronidazole HCl * AdvReac Nausea Verified 08/07/20 13:32 [From Flagyl] Sulfa (Sulfonamide AdvReac Respiratory Verified 08/07/20 13:32 Antibiotics) cat gut Allergy Hives Uncoded 08/07/20 13:32 Review of Systems - Constitutional Constitutional: reports: Fatigue, Weight stable. denies: Fever, Poor appetite - Eyes Eyes: denies: Irritation - Ears, Nose & Throat Ears, Nose & Throat: reports: Hearing loss, Nasal congestion. denies: Hearing aids, Nasal discharge, Nosebleeds, Sore throat - Cardiovascular Cardiovascular: reports: Chest pain (right chestwall pain, see HPI), Decr. exercise tolerance. denies: Palpitations, Edema - Respiratory Respiratory: reports: Cough (intermittent), Wheezing (see HPI, per daughter report). denies: SOB with exertion - Gastrointestinal Gastrointestinal: reports: Good appetite. denies: Abdominal pain, Constipation (controlled, reports history of chronic constipation), Vomiting - Genitourinary Genitourinary: denies: Dysuria - Musculoskeletal Musculoskeletal: reports: Other (daughter suggesting PT for strengthening--patient is not inclined; last fall 1 year ago). denies: Assistive devices - Integumentary Integumentary: denies: Rash - Neurological Neurological: reports: General weakness - Endocrine Endocrine: reports: Intolerance to cold - All Other Systems All Other Systems: reports: Reviewed and negative Physical Exam - Vital Signs Temperature: 36.4 C Pulse Rate: 95 O2 Saturation: 98 (on RA) Blood Pressure: 137/82 - Physical Exam General Appearance: positive: No acute distress, Alert, Other (thin, well groo med) Eyes Bilateral: positive: Normal inspection, PERRL ENT: positive: Pharynx nml, No signs of dehydration. negative: Purulent nasal drainage, Oral lesions Neck: positive: Trachea midline. negative: Lymphadenopathy (R), Lymphadenopathy (L) Cardiovascular: positive: Regular rate & rhythm, Systolic murmur Respiratory: positive: No respiratory distress, Other (noted wheeze once that was more upper airway). 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 Was prescribed gabapentin in the past but did not attempt a trial) Tiredness/Fatigue: Mild (1-3) Sleep: Sleeps well Constipation: Managed - Palliative Care Discussion: Patient would benefit from outpatient physical therapy for core strengthening to assist with her balance and in preparation for moving forward with systemic chemotherapy in the new year however, at the present time she is not inclined to initiate. However, she is amenable to consider and will let palliative care provider know if she wishes to move forward with that referral. The patient has trepidation about utilization of ALK inhibitors due to her past experience and perception that this led to numerous side effects including arthralgias, malaise, loss of taste loss of smell and fatigue. She is amenable and is leaning towards initiation of chemotherapy however, she does not wish to initiate this until after the holidays. She does not wish to move forward with any interventions recognizing the potential risk of progression of disease until after the holidays when her family has completed their visits. She is scheduled to move forward with a nuclear bone scan to evaluate for any bone metastases and is working on scheduling. She continues to practice tobacco use. Reviewed and encourage smoking cessation and pathophysiology of development of COPD in relation to presentation of the patient's symptoms with wheezing and cough with understanding verbalized. Will prescribe albuterol inhaler to have on hand as a tool for potential symptoms in the future and patient is amenable. Patient and her daughter who is now residing with her are navigating coexisting together in formulating effective communication. Impression and Recommendations - Palliative Care Impression: This is an 80-year-old female with continued tobacco use, recurrent right upper lobe cancer with overall minimal symptom burden, in the setting of COPD. Palliative care to continue to build rapport, provide goals of care, care coordination and symptom management and anticipatory guidance. Recommendations/Counseling Done: 1. Recurrent right upper lobe lung cancer. ALK gene mutation positive. Patient presently continues with minimal symptom burden. She is status post with her oncologist on 12/31 with her daughter, Jia and elects to not pursue any interventions until after the holidays in the new year. Daughter found prognostication from oncologist assistive. Patient is leaning toward systemic chemotherapy. Did encourage beginning outpatient physical therapy for core strengthening and balance in preparation for chemotherapy however, at the present time the patient declines and wishes to consider and palliative care [facility] to follow. Daughter is requesting follow-up with oncologist regarding brain MRI ordering. Palliative care will reach out and follow-up with oncologist regarding this request if appropriate. 2. Sinus symptoms. Discussed with patient to continue symptom management of hydration, use of saline nasal spray first thing in the morning and Tylenol as needed for discomfort. She is aware to contact if any facial pain, fever, chills or worsening symptoms. Has been treated for bacterial sinusitis in the past this year. No evidence of acute sinusitis at this time. 3. COPD. Ongoing tobacco abuse. No history of exacerbations. Not on oxygen therapy not on maintenance inhalers. Again reviewed pathophysiology of COPD with the patient and daughter. Does not wish to move forward with prescription for hydrocodone/acetaminophen for antitussive properties and aware may utilize in the future and request if warranted. Prescribed albuterol HFA to use 2 puffs every 4-6 hours as needed for wheezing or shortness of breath to have as a tool in the tool box for symptom management and reviewed administration at length with the patient. 4. Advanced care planning. Supportive listening provided to patient and daughter to assist with effective communication between one another. Continue to settle into routine of living together between both parties. Continue to build rapport, explore goals of care and assist the patient with setting expectations moving forward. We will need to evaluate if POLST is in the home as well as advance care directives moving forward. Total time spent 60 minutes with greater than 50% of the spent in counseling coordination of care with the patient and daughter, Jia; review of medication management; disease progression; review of pain and symptom management and anticipatory guidance as well as supportive listening. Disclaimer: The chart note was formulated using voice recognition technology and unfortunately sound alike errors may occur.
== END 2021-01-10 10:46 | disposition home or self-care (01) ==
LOC: PC 10:45
PROVIDERS: ATTEND Nurse Practitioner Family
DX: Z51.5 Encounter for palliative care (principal); C34.12 Malignant neoplasm of upper lobe, left bronchus or lung; C34.11 Malignant neoplasm of upper lobe, right bronchus or lung; E83.52 Hypercalcemia; Z90.2 Acquired absence of lung [part of]; Z92.21 Personal history of antineoplastic chemotherapy; F17.210 Nicotine dependence, cigarettes, uncomplicated; J44.9 Chronic obstructive pulmonary disease, unspecified; R06.2 Wheezing; Z92.3 Personal history of irradiation; H91.90 Unspecified hearing loss, unspecified ear; R09.81 Nasal congestion; R07.89 Other chest pain
CPT/HCPCS: 99350

== ENCOUNTER 2021-01-25 08:48 | Outpatient (CLI) | payer MEDICARE ==
--- NOTE | 2021-01-25 16:34 | Nuclear Medicine Report ---
PROCEDURE: Bone Whole Body INDICATIONS: LUNG CA. RADIOPHARMACEUTICAL: 25.7 mCi Tc-99m MDP IV. TECHNIQUE: Delayed whole-body scintigrams were obtained approximately 3-4 hours after intravenous injection of r adiotracer. Anterior and posterior views were acquired from vertex to feet. Additional left and rig ht oblique views of the skull and cervical spine were obtained. COMPARISON: Whole-body bone scan, 06/01/2018. FINDINGS: There is normal distribution of activity. IMPRESSION: No findings to suggest osseous metastasis. Reviewed by: Jarad Falk MD on 01/25/2021 4:32 PM PST Approved by: Jarad Falk MD on 01/25/2021 4:32 PM [facility] Station ID: [id number]
== END 2021-01-25 08:49 | disposition home or self-care (01) ==
LOC: DI 08:48
PROVIDERS: ATTEND Internal Medicine Hematology & Oncology
DX: C34.11 Malignant neoplasm of upper lobe, right bronchus or lung (principal); C34.12 Malignant neoplasm of upper lobe, left bronchus or lung
CPT/HCPCS: 78306

== ENCOUNTER 2021-01-31 12:50 | Outpatient (CLI) | payer MEDICARE ==
--- NOTE | 2021-01-31 15:41 | CONSULTATION NOTE ---
Palliative Care Follow Up - Referral Referring Provider: Viki Padilla PA-C/Dr. Edwardo Mclain Time of Visit: [id number] Referral setting: Home Referral Reason: Lung Ca/Rib pain/Constipation - Information Sources Records reviewed: Previous records reviewed History/Review of Systems obtained from: Patient, Family (daughter, Jia) Exam limitations: Clinical condition (+HUSLIA, STM impairment noted) - History of Present Illness Update Brief HPI Update: This is an 80-year-old female who was seen and evaluated today within her home due to Recurrent lung cancer, constipation, and rib pain with wheezing in the setting of COPD with her daughter, Jia present. Provider wore N95 mask. Was contacted this week by patient's daughter and spoke to daughter as per HIPAA that patient had increased rib pain and burning after she had her bone scan on 01/25. On 01/19 she was reporting that she was chilled and had an episode of epistaxis that resolved. On 01/23 she had back pain that was resolved with a warm bath. After her bone scan she reported that her lungs "hurt" with increased coughing and a burning sensation at the base of her lungs. She took Aleve after almost crying due to the discomfort. This helped alleviate some of her symptoms approximately 3 hours later. On 01/27 she then took Aleve again. She has not had this discomfort since then. She is scheduled for CT scans on 02/13 with follow-up with oncologist, Dr. Mclain on 02/18. The patient plans on taking her citrus bioflavonid capsules prior to her CT imaging as she has read articles that this reduces her radiation risk. She reports a longstanding history of constipation and relays it there was a 2- month period where she was unable to defecate and was resolved after her internal hemorrhoids were removed. Since that time, she no longer has a sensation adequately to know when she needs to defecate. She will have periods while she will have a bowel movement on a daily basis and then not have a bowel movement for several days. She intermittently will take MiraLAX but does not take anything on a regular basis outside of her aloe vera liquid to promote defecation. Her daughter week the patient left eggs pulling on the stove until the water boiled off. She is having word finding difficulties. She is reasking her questions repetitively. The patient herself does not perceive that she has any difficulty with memory. She has a history of COPD and continues to be an active smoker. Her daughter will noted intermittent upper wheezing and the patient was using an albuterol inhaler however, she reported a burning sensation and stopped using it. She was using approximately 1 puff/day. Was unable to perceive a difference in her breathing or wheezing. She was first diagnosed with COPD in 2013. Patient is seen in the dining room, thin, well-groomed and articulate. 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 Not COVID-19 vaccinated due to multiple sensitivities to prior medications. Developed diffuse, persistent rashes after radiation therapy in the past. Social History - Living Situation Living arrangement: At home Living Situation: With family (daughter, Jia moved from [place] in with patient in December 2020) Support System: Patient is . She was the primary caregiver for her , who had Alzheimer's dementia until his on hospice. The patient and her spouse have 2 daughters, Jia is presently living with the patient to provide assistance. The patient's other daughter is residing in [place]. The patient is living in a home that is 2900 square feet that she perceives as to "big for her." She enjoys gardening. There is a cat in the home. Medications/Allergies - Medications Home Medications: Ambulatory Orders Medication Instructions Recorded Confirmed Multivitamin [Multivitamins] 1 each PO DAILY 11/26/15 12/31/20 Ascorbic Acid [Vitamin C] 1 tab PO DAILY 12/21/15 12/31/20 Cholecalciferol (Vitamin D3) 2,000 unit PO DAILY 12/21/15 12/31/20 [Vitamin D3] Ubidecarenone/Vit E Acet [Co Q-10 1 cap PO DAILY 06/07/18 12/31/20 100 mg Softgel] Alpha Lipoic Acid 200 mg PO DAILY 11/07/19 12/31/20 Vitamin B Complex 1 each PO DAILY 11/07/19 12/31/20 Pyfjszg-Mfi-Vyne 1 tab PO DAILY 12/18/20 12/31/20 Eyebright 1 tab PO Q48H 12/18/20 12/31/20 Hydrocodone/Acetaminophen 0.5 tab PO Q6H PRN 01/31/21 01/31/21 [Hydrocodone-Acetamin 5-300 mg] Ipratropium/Albuterol [Combivent 1 puffs IN TID PRN 01/31/21 01/31/21 Respimat] Senna [Senokot] 1 tab PO BID PRN 01/31/21 01/31/21 polyethylene glycoL 3350 [Miralax] 17 gm PO QPM 01/31/21 01/31/21 - Allergies Allergies/Adverse Reactions: Allergies Allergy/AdvReac Type Severity Reaction Status Date / Time hexachlorophene Allergy blisters Verified 08/07/20 13:32 [From Phisohex] Penicillins Allergy Rash Verified 08/07/20 13:32 metronidazole [From Flagyl] AdvReac Nausea Verified 08/07/20 13:32 Metronidazole HCl * AdvReac Nausea Verified 08/07/20 13:32 [From Flagyl] Sulfa (Sulfonamide AdvReac Respiratory Verified 08/07/20 13:32 Antibiotics) cat gut Allergy Hives Uncoded 08/07/20 13:32 Review of Systems - Constitutional Constitutional: reports: Weight stable. denies: Fever, Poor appetite - Ears, Nose & Throat Ears, Nose & Throat: reports: Hearing loss, Nosebleeds (see HPI, one episode, resolved). denies: Hearing aids - Cardiovascular Cardiovascular: reports: Chest pain (right chestwall pain), Decr. exercise tolerance. denies: Palpitations, Edema - Respiratory Respiratory: reports: Cough, Sputum production, Wheezing (per daughter, see HPI) - Gastrointestinal Gastrointestinal: reports: Constipation (LBM today, 01/31), Good appetite. denies: Abdominal pain - Genitourinary Genitourinary: denies: Dysuria - Musculoskeletal Musculoskeletal: denies: Assistive devices - Neurological Neurological: reports: Memory problems (daughter, Jia noting increased for getfulness, see HPI). denies: Headache - Endocrine Endocrine: reports: Intolerance to cold - All Other Systems All Other Systems: reports: Reviewed and negative Physical Exam - Vital Signs Temperature: 36.6 C Pulse Rate: 86 O2 Saturation: 98 (on RA) Blood Pressure: 117/81 - Physical Exam General Appearance: positive: No acute distress, Alert, Other (thin, well groomed) Eyes Bilateral: positive: Normal inspection ENT: positive: No signs of dehydration Neck: positive: Trachea midline Cardiovascular: positive: Regular rate & rhythm, Systolic murmur (1/6 BRENT) Respiratory: positive: No respiratory distress. negative: Wheezes, Rales Abdomen: positive: Non-tender, Soft, Nml bowel sounds. 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 increased pain after bone scan.) Constipation: Yes, Intermittent constipation - Palliative Care Discussion: Given the patient's history of COPD and continued tobacco use would benefit from a rescue inhaler. As she reports burning sensation with albuterol inhalation will transition to Combivent and reviewed utilization half to 3 times a day as needed. Patient continues to perceive that she is doing very well. Reviewed recent nuclear bone scan that did not reveal any findings that suggest osseous metastasis with both the patient and daughter. She does have some trepidation regarding pending CT scans due to radiation exposure and plans on taking her citrate supplements to counteract radiation side effects. This appears to give her peace of mind. She continues to not wish to move forward with any type of treatment regarding her recurrent lung cancer until after the holidays. She is having several members of her family to her home during the holiday season and is very much looking forward to this. Noted on evaluation today increased short-term memory impairment not noted on prior evaluations that the patient herself does not perceive and is recognized by her daughter. We will need to continue to build rapport and work with the patient regarding teasing out if this is related to her oncologic diagnosis versus her history of chemotherapy causing this deficit or increased stress. Memory impairments would be a sensitive subject given the patient was the primary caregiver of her spouse who had Alzheimer's until his . Impression and Recommendations - Palliative Care Impression: This is an 80-year-old female with continued tobacco use, recurrent right upper lobe cancer with overall minimal symptom burden in the setting of COPD and constipation. Palliative care to continue to build rapport, explore goals of care, provide care coordination and symptom management with anticipatory guidance. Recommendations/Counseling Done: 1. Constipation. Longstanding history. Initiate MiraLAX 1 cap in the evening dissolved in 4 to 6 ounces of liquid. Discussed titration up or down depending on symptoms. And discussed utilization of senna 8.6 mg taking 1 tablet twice a day as needed for additional laxatives with understanding verbalized. Recommended use of stimulation of gag reflex with a toothbrush for stimulating bowel movements as a trial. 2. COPD. Ongoing tobacco use. No history of exacerbations. Not on oxygen therapy or maintenance inhalers. Discontinue albuterol HFA per patient's request due to reports of burning sensation. Initiate Combivent inhaler 1 puff 3 times a day as needed for wheezing or shortness of breath and reviewed administration. 3. Right chest wall pain. History of right upper lobectomy. Given recent reports of severe pain recommendation made to have hydrocodone 5 mg/acetaminophen 325 mg within the home to be utilized for moderate to severe pain with agreement to have as a tool in her toolbox. Request that she take half a tablet of hydrocodone 5 mg/acetaminophen 325 mg every 6 hours as needed for severe pain. Rx sent to [facility] in [place] per patient request. Discussed potential side effects of opioid therapy in including increased risk of constipation and need for bowel monitoring with understanding verbalized. 4. Forgetfulness. Noted word finding difficulties and short-term memory impairments today on evaluation and has been supplemented by the patient's robert ghter who is living with the patient.Unclear if this increase in forgetfulness is due to anxiety versus history of chemotherapy effects versus disease progression. We will reach out to patient's oncologist if any additional imaging is warranted. Patient is scheduled for imaging on 02/13 with follow-up with her oncologist on 02/18. 5. Recurrent right upper lobe lung cancer. ALK K gene mutation positive. Patient overall continues with minimal symptom burden. Presently he is voiding interventions until after the holidays as this is the patient's choice. Continue to be supported by oncology. Total time spent 45 minutes with greater than 50% of the spent in counseling and coordination of care with the patient and daughter, Jia; review of symptom management and medication management; examination of patient; anticipatory guidance as well as supportive listening. Disclaimer: The chart note was formulated using voice recognition technology and unfortunately sound alike errors may occur.
== END 2021-01-31 12:51 | disposition home or self-care (01) ==
LOC: PC 12:50
PROVIDERS: ATTEND Nurse Practitioner Family
DX: Z51.5 Encounter for palliative care (principal); K59.00 Constipation, unspecified; J44.9 Chronic obstructive pulmonary disease, unspecified; F17.200 Nicotine dependence, unspecified, uncomplicated; R07.89 Other chest pain; R41.89 Other symptoms and signs involving cognitive functions and awareness; C34.11 Malignant neoplasm of upper lobe, right bronchus or lung; Z90.2 Acquired absence of lung [part of]
CPT/HCPCS: 99349

== ENCOUNTER 2021-02-13 13:21 | Outpatient (CLI) | payer MEDICARE ==
[2021-02-13 13:46] LABS: HCT - HEMATOCRIT 40.7 % (37.0-47.0); HGB - HEMOGLOBIN 13.5 g/dL (12.0-16.0); MEAN CORPUSCULAR HEMOGLOBIN 30.9 pg (27.0-31.0); MEAN CORPUSCULAR HGB CONC 33.2 g/dL (32.0-36.0); MEAN CORPUSCULAR VOLUME 93.1 fL (81.0-99.0); MEAN PLATELET VOLUME 10.3 fL (7.9-10.8); NEUTROPHILS # (AUTO) 4.3 10^3/uL (1.5-6.6); NEUTROPHILS % (AUTO) 71.2 %; RED BLOOD COUNT 4.37 10^6/uL (4.20-5.40); RED CELL DISTRIBUTION WIDTH 13.9 % (12.0-15.0)
[2021-02-13 13:57] LABS: ALBUMIN 4.1 g/dL (3.2-5.5); ALBUMIN/GLOBULIN RATIO 1.5 (1.0-2.2); BILIRUBIN,TOTAL 0.6 mg/dL (0.2-1.0); CALCIUM 10.1 mg/dL (8.5-10.3); CREATININE 0.8 mg/dL (0.4-1.0); POTASSIUM 3.7 mmol/L (3.5-5.0); TOTAL PROTEIN 6.9 g/dL (6.7-8.2)
[2021-02-13] MEDS ORDERED: IOVERSOL 320 100 ML VIAL IVP ONE (14:41)
[2021-02-13] MEDS ORDERED: IOVERSOL 320 50 ML VIAL ONE (14:41)
--- NOTE | 2021-02-13 20:13 | CT Report ---
PROCEDURE: CHEST WO INDICATIONS: Lung CA TECHNIQUE: Noncontrast 1mm axial images were acquired from the pulmonary apices to the posterior costophrenic an gles. Axial 5 mm soft tissue kernel reconstructions were performed as well as 8 mm axial MIP and cor onal and sagittal 5 mm reformations. For radiation dose reduction, the following was used: automate d exposure control, adjustment of mA and/or kV according to patient size. COMPARISON: October 29, 2020 FINDINGS: Thyroid: Homogeneous. Vasculature: Normal size and contour. Calcified atheromatous changes aorta. Heart: No cardiomegaly or pericardial effusion. Mediastinum/umesh: No pathologically enlarged lymph nodes by size criteria. Lung/pleura: Redemonstrated spiculated nodule/masses, grossly unchanged. Blog Writer lesions: Right apex: February 13, 2021: 2.7 x 1.6 cm; series 4, image 60 October 29, 2020: 2.7 x 1.7; series 4, image 61 Left apex: February 13, 2021: 1.7 x 1.1 cm; series 4, image 51 June 29, 2020: 1.7 x 1.4 cm; series 4, image 53. Centrilobular emphysematous changes. Additional faint densities are seen (i.e. left upper lobe; serie s 4, image 91), unchanged. Postsurgical changes related to previous right partial lobectomy. Scattered subsegmental scarring/ate lectasis. No acute consolidation, pleural effusion, or pneumothorax. Tracheobronchial tree: Patent. Diffuse mild bronchial wall thickening. Bones: No significant abnormality. Multifocal degenerative change Chest wall: No significant abnormality. Right breast surgical clips. IMPRESSION: 1.No significant interval change. Reviewed by: Tru James MD on 02/13/2021 8:11 PM PST Approved by: Tru James MD on 02/13/2021 8:11 PM PST Station ID: [id number]
--- NOTE | 2021-02-13 20:21 | CT Report ---
PROCEDURE: Abdomen/Pelvis WO INDICATIONS: Lung CA TECHNIQUE: Noncontrast 5 mm thick sections acquired from the diaphragms to the symphysis. 5 mm coronal and sagi ttal reformats were then performed. For radiation dose reduction, the following was used: automated exposure control, adjustment of mA and/or kV according to patient size. COMPARISON: April 15, 2012. FINDINGS: Gallbladder: The gallbladder is distended with a smooth wall. Biliary tree: No intrahepatic biliary ductal dilatation. Liver: The liver demonstrates normal appearance. Spleen: Normal size and morphology is seen. Pancreas: Normal morphology without masses or inflammatory changes. Adrenals: Normal size without masses. Kidneys: Normal size and morphology. No contour deforming solid masses or evidence of obstructive uro donato. Vasculature: No aneurysmal dilatation of the aorta. Calcified atheromatous change of the aorta. Lymphatic system: No pathologic enlargement by size criteria. Bowel: No intestinal obstruction. Moderate stool burden throughout the colon. Sigmoid diverticulosis. The appendix is not well-visualized. Peritoneum/Retroperitoneum: No free intraperitoneal gas or large collection. Urinary bladder: The urinary bladder is distended with a smooth thin wall. Pelvic organs: The uterus appears surgical absent. Bones/soft tissues: No significant abnormality. Small fat-containing ventral hernia (series 6, image 32). IMPRESSION: 1.No significant abnormality. Reviewed by: Tru James MD on 02/13/2021 8:20 PM PST Approved by: Tru James MD on 02/13/2021 8:20 PM PST Station ID: [id number]
== END 2021-02-13 13:22 | disposition home or self-care (01) ==
LOC: LAB 13:21 → DI 13:22
PROVIDERS: ATTEND Internal Medicine Hematology & Oncology
DX: C34.12 Malignant neoplasm of upper lobe, left bronchus or lung (principal); C34.11 Malignant neoplasm of upper lobe, right bronchus or lung; I70.0 Atherosclerosis of aorta; J43.2 Centrilobular emphysema; Z90.2 Acquired absence of lung [part of]
CPT/HCPCS: 36415; 80053; 82378; 85027

== ENCOUNTER 2021-02-13 13:29 | Outpatient (CLI) | payer MEDICARE ==
[2021-02-13] MEDS ORDERED: GADOBUTROL 7.5 MMOL/7.5 ML VIAL ONE (14:23)
[2021-02-13] MEDS ORDERED: GADOBUTROL 7.5 MMOL/7.5 ML VIAL IVP ONE (15:36)
--- NOTE | 2021-02-13 15:45 | MRI Report ---
PROCEDURE: Brain W/WO INDICATIONS: LUNG CA CONTRAST: IV CONTRAST: Gadavist ml: 5.2 TECHNIQUE: Noncontrast axial T1 spin echo, axial T2 fast spin echo, sagittal and axial FLAIR, coronal T2 fast sp in echo, axial gradient echo, axial diffusion and ADC through the brain. After the administration of contrast, axial and coronal T1 spin echo with fat saturation through the brain. COMPARISON: 03/23/2013, 08/13/2012 FINDINGS: Image quality: Excellent. CSF spaces: Basal cisterns are patent. No extra-axial fluid collections. Ventricles are normal in size and shape. Brain: No midline shift. No intracranial bleeds or masses. No abnormal intracranial enhancement. There is cerebral volume loss for age. There is periventricular white matter chronic small vessel is chemic change. The brainstem appears normal. Diffusion-weighted images demonstrate no acute ischemi c insults. No chronic ischemic insults. Normal intravascular flow voids are present. An T-cell is again seen, which is stable. Skull and face: Calvarial marrow is normal in signal. Orbits appear normal. Sinuses: Moderate mucosal thickening seen within the left maxillary sinus. Mild mucosal thickening i s seen within the ethmoid air cells. Sinuses and mastoids otherwise are relatively clear. IMPRESSION: No masses or abnormal enhancement can be seen. No findings of acute or subacute infarction are seen. Age-appropriate brain parenchymal volume loss and chronic small vessel ischemic change can be seen. Focal left maxillary sinus disease noted. Reviewed by: Naren Steele MD on 02/13/2021 2:44 PM AKST Approved by: Naren Steele MD on 02/13/2021 2:44 PM AK Station ID: [id number]
== END 2021-02-13 13:30 | disposition home or self-care (01) ==
LOC: DI 13:29
PROVIDERS: ATTEND Internal Medicine Hematology & Oncology
DX: C34.11 Malignant neoplasm of upper lobe, right bronchus or lung (principal); C34.12 Malignant neoplasm of upper lobe, left bronchus or lung; J32.0 Chronic maxillary sinusitis; I70.0 Atherosclerosis of aorta; J43.2 Centrilobular emphysema; Z90.2 Acquired absence of lung [part of]
CPT/HCPCS: 36415; 70553; 71250; 74176; 80053; 82378; 85027; A9585

== ENCOUNTER 2021-03-20 09:35 | Outpatient (CLI) | payer MEDICARE ==
--- NOTE | 2021-03-20 17:29 | CONSULTATION NOTE ---
Palliative Care Follow Up - Referral Referring Provider: Viki Padilla PA-C/Dr. Edwardo Mclain Time of Visit: 5750-7069 Referral setting: Home Referral Reason: Forgetfulness/Lung Ca - Information Sources Records reviewed: Previous records reviewed History/Review of Systems obtained from: Patient, Family (daughter, Jia) Exam limitations: Clinical condition (+SAN JUAN and STM imairment noted) - History of Present Illness Update Brief HPI Update: This is an 81-year-old female who is seen in follow-up today within her home due to recurrent lung cancer, right rib pain, and forgetfulness with her daughter, Jia present. Provider wore N95 mask. The patient's daughter continues to note increased forgetfulness. She expresses concerns especially in the middle of the night if the patient were to get up and it appears that she is coming out of a vivid dream and believes something had occurred when it has not. The patient herself reports that she will get up due to nocturia but otherwise, does not recall any events. This is only occurred once since the patient's daughter has moved in with the patient in December 2020. The patient reports that she had an enjoyable time with her family present over the holidays. However, her daughter reports a different story that things were tense at times with the patient having increased forgetfulness and is not bathing regularly. The patient herself, does not perceive that she has increased forgetfulness. She denies difficulty staying or falling asleep, feeling down or depressed or difficulty concentrating on tasks. She does perceive that she is bored and "not depressed." Due to concerns regarding the patient's cognition a brain MRI was obtained on 02/13 and was negative for metastases. She also had a nuclear bone scan also, negative for metastases. Her most recent CT scan demonstrated stable disease progression in the right upper lobe hin presently, the patient is avoiding therapy at this time given her previous sensitivities to chemotherapy and radiation. In relation to her MRI it did demonstrate, "cerebral volume loss for age. There is periventricular white matter chronic small vessel ischemic change." Also demonstrated "moderate mucosal thickening seen within the left maxillary sinus. Mild mucosal thickening is seen within the ethmoid air cells. Sinuses and mastoids otherwise are relatively clear." The patient was treated with azithromycin due to increased congestion by her PCP. Reports minor change and improvement of congestion. She continues to smoke cigarettes approximately half a pack per day. Does have intermittent coughing. She recently had elevated blood pressure with systolic above 200 and was seen at the urgent care walk-in clinic and was started on losartan 25 mg daily. Since beginning this she does report that she was initially sluggish after taking the medication to begin with and now feels like she is back to normal. There are no concerns regarding appetite. Patient is seen well-groomed and articulate. 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 Not COVID-19 vaccinated due to multiple sensitivities to prior medications. Developed diffuse, persistent rashes after radiation therapy in the past. Social History - Living Situation Living arrangement: At home Living Situation: With family (daughter, Jia moved from [place] in with patient in December 2020) Support System: Patient is . She was the primary caregiver for her , who had Alzheimer's dementia until his on hospice. The patient and her spouse have 2 daughters, Jia is presently living with the patient to provide assistance. The patient's other daughter is residing in [place]. The patient is living in a home that is 2900 square feet that she perceives as to "big for her." She enjoys gardening. There is a cat in the home named Kenny. Medications/Allergies - Medications Home Medications: Ambulatory Orders Medication Instructions Recorded Confirmed Multivitamin [Multivitamins] 1 each PO DAILY 11/26/15 02/18/21 Ascorbic Acid [Vitamin C] 1 tab PO DAILY 12/21/15 02/18/21 Cholecalciferol (Vitamin D3) 2,000 unit PO DAILY 12/21/15 02/18/21 [Vitamin D3] Ubidecarenone/Vit E Acet [Co Q-10 1 cap PO DAILY 06/07/18 02/18/21 100 mg Softgel] Alpha Lipoic Acid 200 mg PO DAILY 11/07/19 02/18/21 Vitamin B Complex 1 each PO DAILY 11/07/19 02/18/21 Drubpmv-Mud-Jyou 1 tab PO DAILY 12/18/20 02/18/21 Eyebright 1 tab PO Q48H 12/18/20 02/18/21 Hydrocodone/Acetaminophen 0.5 tab PO Q6H PRN 01/31/21 02/18/21 [Hydrocodone-Acetamin 5-300 mg] Senna [Senokot] 1 tab PO BID PRN 01/31/21 02/18/21 polyethylene glycoL 3350 [Miralax] 17 gm PO QPM 01/31/21 02/18/21 Losartan Potassium 1 tab PO DAILY 03/25/21 03/25/21 - Allergies Allergies/Adverse Reactions: Allergies Allergy/AdvReac Type Severity Reaction Status Date / Time suture Allergy Intermediate Catgut: Verified 02/13/21 15:40 Pustules at site hexachlorophene Allergy blisters Verified 08/07/20 13:32 [From Phisohex] Penicillins Allergy Rash Verified 08/07/20 13:32 metronidazole [From Flagyl] AdvReac Nausea Verified 08/07/20 13:32 Metronidazole HCl * AdvReac Nausea Verified 08/07/20 13:32 [From Flagyl] Sulfa (Sulfonamide AdvReac Respiratory Verified 08/07/20 13:32 Antibiotics) Review of Systems - Constitutional Constitutional: reports: Weight stable. denies: Fever, Poor appetite - Ears, Nose & Throat Ears, Nose & Throat: reports: Hearing loss. denies: Hearing aids, Nasal congestion (reduced after most recent ABX course) - Cardiovascular Cardiovascular: reports: Chest pain (right chestwall pain), Decr. exercise tolerance. denies: Palpitations, Edema - Respiratory Respiratory: reports: Cough, Wheezing (per daughter, see HPI) - Gastrointestinal Gastrointestinal: reports: Constipation (controlled per patient report), Good appetite. denies: Abdominal pain - Genitourinary Genitourinary: reports: Nocturia. denies: Dysuria - Musculoskeletal Musculoskeletal: denies: Assistive devices, Transfer issues - Neurological Neurological: reports: Memory problems (daughter, Jia noting increased forgetfulness, see HPI). denies: Headache - Psychiatric Psychiatric: denies: Depression (denies), Suicidal - Endocrine Endocrine: reports: Intolerance to cold - All Other Systems All Other Systems: reports: Reviewed and negative (ROS supplemented by daughterJia) Physical Exam - Vital Signs Temperature: 37.0 C Pulse Rate: 88 O2 Saturation: 98 (on RA) Blood Pressure: 148/78 - Physical Exam General Appearance: positive: No acute distress, Alert, Other (thin, well groomed) Eyes Bilateral: positive: Normal inspection ENT: positive: No signs of dehydration Neck: positive: Trachea midline Cardiovascular: positive: Regular rate & rhythm, Systolic murmur (1/6 BRENT) Respiratory: positive: No respiratory distress Abdomen: positive: Non-tender, Soft, Nml bowel sounds. 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 Has hydrocodone/acetaminophen in the home but reluctant to use even at reduced amounts. Will use advil if needed for discomfort with positive effect.) Sleep: Sleeps well Constipation: Yes, Managed Performance Status: Ambulatory without an assist device. No recent falls. Able to prepare food. Daughter reports decrease in personal hygiene. - Palliative Care Discussion: The patient continues to perceive that she is managing well. She recently had an MRI of the brain and nuclear bone scan that did not reveal any metastases. Her lung cancer per report of most recent CT scan of the chest demonstrated stab ility and she has a follow-up with oncology in May 2021. The patient's daughter however reports concerns regarding the patient's forgetfulness. The daughter perceived increased short-term memory and behavioral concerns specifically pointing out that the patient is not providing routine hygiene and personal care. The patient herself, does not recognize these concerns. She will deflect and become defensive if these topics are brought up of concern given she was the caregiver for her spouse who had Alzheimer's disease and she is sensitive to the subject given her familiarity. Patient today on memory recall scored 2 out of 3. Separately, the patient's daughter expressed concerns regarding her caregiver role and needing increased support that she wanted discussed separately. Provided contact information for support group through [facility] as well as contact information for [employer] as additional references for caregiving support. The patient's daughter is very [id number] and her knowledge base and does not feel comfortable in the great area. The patient herself is fine being in the munoz as long as she is comfortable. There remains complex social dynamics between mother and daughter. Impression and Recommendations - Palliative Care Impression: This is an 81-year-old female with continued tobacco abuse, recurrent right upper lobe cancer with Forgetfulness in the setting of COPD. Patient herself perceives minimal symptom burden. Palliative care to continue to build rapport, explore goals of care, provide care coordination and symptom management with anticipatory guidance. Recommendations/Counseling Done: 1. Hypertension. New diagnosis. No cardiac awareness. Discussed utilization of a Mediset to cue when taking medications however, the patient does not perceive that she needs this. Stressed importance of a low-sodium diet and salt substitution such as Mrs. Villeda. Requested that she monitor her blood pressure every other day and record with home monitoring device with a goal blood pressure less than 150/90. Continue losartan 25 mg daily. Continue routine follow-up with PCP. 2.Right chest wall pain. History of right upper lobectomy. Intermittent pain reported. Patient has not trialed half a tablet of hydrocodone 5 mg/ganga taminophen 325 mg as ordered every 6 hours as needed for severe pain. She finds that her pain is controlled with Aleve if needed. She has not found gabapentin effective for this in the past. Continue to monitor and assist with pain regimen strategies as the patient allows. 3. Forgetfulness. Patient with noted short-term memory impairments however, does not perceive that she has any increased forgetfulness from baseline. Brain MRI on 02/13/2021 was negative for metastases. Patient denies any depressive symptoms. Discussed if desired for further evaluation and work-up with lab work however, presently declines. We will continue to monitor. 4. Recurrent right upper lobe lung cancer. ALK K gene mutation positive. Patient overall continues with minimal symptom burden. Presently she is a not receiving treatment and has reservations regarding side effects. Last CT scan demonstrated stability of disease progression with follow-up with oncology in May 2021. Continue to be supported by oncology. 5.Advance care planning. Patient does not have a POLST in place. She continues to weigh benefits versus burdens regarding treatment options. She recognizes [id number] with taking her medications such as her antihypertensive medication and if she were not that she has had of at risk for stroke and recognizes the fallout if that were to occur. Her daughter, Jia continues to live in the home and provide support however, is struggling in the role of caregiver and additional resources provided to daughter to provide additional sources and support outside of the home. We will continue to build rapport and explore goals of care. Total time spent 60 minutes with greater than 50% of the spent in counseling and coordination of care with the patient and daughter; review of recent oncology visit and diagnostic imaging; examination of patient; private discussion with patient regarding depressive symptoms and forgetfulness; exploration of goals of care, review of pathophysiology of hypertension and dietary changes; and advance care planning. Disclaimer: The chart note was formulated using voice recognition technology and unfortunately sound alike errors may occur.
== END 2021-03-20 09:36 | disposition home or self-care (01) ==
LOC: PC 09:35
PROVIDERS: ATTEND Nurse Practitioner Family
DX: Z51.5 Encounter for palliative care (principal); R41.3 Other amnesia; F17.210 Nicotine dependence, cigarettes, uncomplicated; R07.89 Other chest pain; I10 Essential (primary) hypertension; C34.11 Malignant neoplasm of upper lobe, right bronchus or lung; Z79.899 Other long term (current) drug therapy; Z90.2 Acquired absence of lung [part of]; Z15.09 Genetic susceptibility to other malignant neoplasm
CPT/HCPCS: 99350

== ENCOUNTER 2021-05-20 15:05 | Outpatient (CLI) | payer MEDICARE ==
--- NOTE | 2021-05-20 16:37 | CONSULTATION NOTE ---
Palliative Care Follow Up - Referral Referring Provider: Viki Padilla PA-C/Dr. Edwardo Mclain Time of Visit: [id number] Referral setting: [facility] [place] Referral Reason: Lung Ca/COPD/Forgetfulness - Information Sources Records reviewed: Previous records reviewed History/Review of Systems obtained from: Patient, Family (daughter, Jia) Exam limitations: Clinical condition (+STM impairment, [place]) - History of Present Illness Update Brief HPI Update: This is an 81-year-old female who is seen in follow-up today at the [facility] [place] due to l richard cancer, COPD and forgetfulness with her daughter, Jia present. Provider wore N95 mask. The patient's most recent CT scan from 05/10/2021 demonstrated "no significant interval change." Regarding disease progression in the right upper lobe. The patient is preferring to avoid therapy given her previous sensitivities to chemotherapy and radiation. The patient continues to present with forgetfulness that is perceived by the daughter and not the patient. She feels that at times her repetition of questions is due to her hearing and not related conceptual processing of a question. Feels she feels supported by her daughter, Jia when she is present for visit as she realizes that Jia will be able to get all of the information especially some that the patient feels that she may miss. Encourage the patient to stop provider or others if she did not catch something or needed to seek clarification. Patient's daughter also expresses concerns regarding the patient completing her own taxes. Last year there was some discrepancy and the patient was issued some type of refund. She did however have an MRI performed that was negative for brain metastases but did demonstrate cerebral volume loss due to age as well as small vessel ischemic changes. In light of this and the patient's hypertension she was prescribed losartan however, she has been not taking this as prescribed and taking every other day. Reiterated today the importance of taking her antihypertensive medication on a daily basis. Daughter does express that the patient has difficulties at times managing her medications but even today, the patient is not amenable to having assist since from her daughter regarding this so she wishes to maintain independence and does not perceive that she has any difficulty. Her daughter notes that she continues to have some intermittent upper wheezing where the patient seems "tight". However, the patient does not perceive this. She has been trialed on different inhalers none of which the patient has found tolerable and therefore are not in use. The patient herself does not perceive that she has any difficulties at the present time outside of her sinuses. Of which, she is presently on a course of Bactrim due to an infection which is improving. Social History - Living Situation Living arrangement: At home Living Situation: With family (daughter, Jia moved from [place] in with patient in December 2020) Medications/Allergies - Medications Home Medications: Ambulatory Orders Medication Instructions Recorded Confirmed Multivitamin [Multivitamins] 1 each PO DAILY 11/26/15 05/20/21 Ascorbic Acid [Vitamin C] 1 tab PO DAILY 12/21/15 05/20/21 Cholecalciferol (Vitamin D3) 2,000 unit PO DAILY 12/21/15 05/20/21 [Vitamin D3] Ubidecarenone/Vit E Acet [Co Q-10 1 cap PO DAILY 06/07/18 05/20/21 100 mg Softgel] Alpha Lipoic Acid 200 mg PO DAILY 11/07/19 05/20/21 Vitamin B Complex 1 each PO DAILY 11/07/19 05/20/21 Kqnkzkd-Zwz-Qrpx 1 tab PO DAILY 12/18/20 05/20/21 Eyebright 1 tab PO Q48H 12/18/20 05/20/21 Hydrocodone/Acetaminophen 0.5 tab PO Q6H PRN 01/31/21 05/20/21 [Hydrocodone-Acetamin 5-300 mg] Senna [Senokot] 1 tab PO BID PRN 01/31/21 05/20/21 polyethylene glycoL 3350 [Miralax] 17 gm PO QPM 01/31/21 05/20/21 Losartan Potassium 1 tab PO DAILY 03/25/21 05/20/21 - Allergies Allergies/Adverse Reactions: Allergies Allergy/AdvReac Type Severity Reaction Status Date / Time suture Allergy Intermediate Catgut: Verified 02/13/21 15:40 Pustules at site hexachlorophene Allergy blisters Verified 08/07/20 13:32 [From Phisohex] Penicillins Allergy Rash Verified 08/07/20 13:32 metronidazole [From Flagyl] AdvReac Nausea Verified 08/07/20 13:32 Metronidazole HCl * AdvReac Nausea Verified 08/07/20 13:32 [From Flagyl] Sulfa (Sulfonamide AdvReac Respiratory Verified 08/07/20 13:32 Antibiotics) Review of Systems - Constitutional Constitutional: reports: Weight stable (52.2kg 07/20/21). denies: Fever, Poor appetite - Ears, Nose & Throat Ears, Nose & Throat: reports: Hearing loss, Other (Nasal infection--on a course of Bactrim and using mupirocin ointment). denies: Hearing aids - Cardiovascular Cardiovascular: reports: Decr. exercise tolerance. denies: Palpitations, Edema - Respiratory Respiratory: reports: Cough, Wheezing (per daughter, see HPI). denies: Sputum production, SOB at rest - Gastrointestinal Gastrointestinal: reports: Constipation (controlled per patient report. she will start and stop miralax based on symptoms), Good appetite. denies: Abdominal pain, Diarrhea, Vomiting - Genitourinary Genitourinary: reports: Nocturia. denies: Dysuria - Musculoskeletal Musculoskeletal: denies: Assistive devices, Transfer issues - Neurological Neurological: reports: Memory problems (daughterJia noting increased fo rgetfulness, see HPI. Patient does not perceive that she has increased forgetfulness.). denies: Headache, Dizziness - Psychiatric Psychiatric: denies: Depression - Endocrine Endocrine: reports: Intolerance to cold - All Other Systems All Other Systems: reports: Reviewed and negative (ROS supplemented by daughterJia) Physical Exam - Vital Signs Pulse Rate: 74 O2 Saturation: 100 Blood Pressure: 149/85 - Physical Exam General Appearance: positive: No acute distress, Alert, Other (thin, well groomed) Eyes Bilateral: positive: Normal inspection ENT: positive: No signs of dehydration Neck: positive: Trachea midline Cardiovascular: positive: Regular rate & rhythm, Systolic murmur (1/6 BRENT) Respiratory: positive: No respiratory distress. negative: Wheezes, Rales Abdomen: positive: Non-tender, Soft, Nml bowel sounds. 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) Neurologic/Psychiatric: positive: Oriented x3 (STM impiarment with word finding issues and repeated questions.), Mood/affect nml Palliative Care - POLST Patient has POLST: No Pain: No pain Tiredness/Fatigue: None Drowsiness/Sedation: None Nausea: None Anorexia: None Dyspnea: None Depression: None Anxiety: None Feelings of wellbeing/Perceived Quality of Life: Excellent Sleep: Sleeps well Constipation: Managed, Intermittent constipation - Palliative Care Discussion: From the standpoint of the patient in recurrent right upper lobe cancer this is remained stable with most recent imaging she is being monitored by oncology. The patient elects not to have interventions at this time due to her past experiences with chemotherapy and radiation. She also perceives minimal to no symptom burden and therefore does not want to impact her quality of life. The patient's daughter continues to report concerns regarding the patient's forgetfulness. Patient perceives that she has a significant memory impairment and she will become defensive when this is broached. With the daughter's concerns regarding the patient's completing her taxes with discussion today, the patient was amenable to having the patient's daughter perform taxes for the patient separately and allow comparison before formally submitting. Discussed today with the patient at length that if there was a time that she felt she had worse to take patient requested that she openly come to her daughter expressing these concerns and if there was a time that her daughter or medical data analyst had a concern that these would be addressed with the patient and open communication ultimately, to ensure her safety with understanding verbalized. Results - Lab Results Lab results reviewed: Yes Lab and Imaging Results: CT scan 05/10/21 Impression and Recommendations - Palliative Care Impression: This is an 81-year-old female with continued tobacco abuse, recurrent right upper lobe cancer with forgetfulness in the setting of hypertension and COPD. Emphasized today the need for the patient to take her antihypertensives on a daily basis. Palliative care to continue to build rapport, explore goals of care, provide care coordination and symptom management with anticipatory guidance. Recommendations/Counseling Done: 1. Hypertension. Diagnosis 2021. No cardiac awareness. Patient is not open to having the daughter manage medications. Does not wish to use a Starr set. Again stressed the importance to take her losartan 25 mg daily. Advised to check her blood pressure once a week and record with a goal blood pressure less than 150/90. The patient is sensitive to blood pressure machines and therefore will reduce to once weekly. Continue routine follow-up with PCP as recommended. 2. Forgetfulness. Patient with noted short-term memory impairments however, does not perceive that she has any increased forgetfulness from baseline. Brain MRI on 02/13/2021 was negative for metastases. Patient continues to deny any depressive symptoms. Is amenable to allowing comparison of taxes to be reviewed by her daughter. Open to allowing discussions in the future regarding safety concerns as they arise. Continue to monitor and provide support. 3. Caregiver burden. Patient's daughter expresses concerns regarding the patient's forgetfulness and perceives this is similar to when her father progress with his Alzheimer's dementia. Supportive and empathetic listening provided to the patient's daughter. We will continue to provide support and tease out how best to support daughter and patient. 4. Recurrent right upper lobe cancer. ALK gene mutation positive. Patient overall continues with minimal symptom burden. Presently not receiving treatment and has reservations regarding side effects. Last CT scan 05/10/2021 without noted progression. Continue to have imaging every 6 months and follow- up with oncology every 3 months as ordered. Total time spent 50 minutes with greater than 50% of the spent in counseling and coordination of care with the patient and daughter; supportive empathetic listening; troubleshooting regarding forgetfulness; review of CT scan and oncology notes; examination of patient; and anticipatory guidance. Disclaimer: The chart note was formulated using voice recognition technology and unfortunately sound alike errors may occur.
== END 2021-05-20 15:06 | disposition home or self-care (01) ==
LOC: PC 15:05
PROVIDERS: ATTEND Nurse Practitioner Family
DX: Z51.5 Encounter for palliative care (principal); I10 Essential (primary) hypertension; R41.3 Other amnesia; C34.91 Malignant neoplasm of unspecified part of right bronchus or lung; Z79.899 Other long term (current) drug therapy; J44.9 Chronic obstructive pulmonary disease, unspecified; H91.90 Unspecified hearing loss, unspecified ear; Z91.14 Patient's other noncompliance with medication regimen; K59.00 Constipation, unspecified
CPT/HCPCS: 99215

== ENCOUNTER 2021-05-23 08:00 | Outpatient (CLI) | payer MEDICARE | END 2021-05-23 23:59 | disposition home or self-care (01) | LOC: LAB.WCP 08:00 | PROVIDERS: ATTEND Physician Assistant Medical | DX: L08.89 Other specified local infections of the skin and subcutaneous tissue (principal) | CPT/HCPCS: 87070; 87205 ==

== ENCOUNTER 2022-08-27 08:54 | Outpatient (CLI) | payer MEDICARE ==
[2022-08-27 09:21] LABS: ALBUMIN 3.9 g/dL (3.2-5.5); ALBUMIN/GLOBULIN RATIO 1.1 (1.0-2.2); BILIRUBIN,TOTAL 0.6 mg/dL (0.2-1.0); CALCIUM 10.1 mg/dL (8.5-10.3); CREATININE 0.9 mg/dL (0.4-1.0); POTASSIUM 3.8 mmol/L (3.5-5.0); TOTAL PROTEIN 7.4 g/dL (6.7-8.2)
[2022-08-27 11:37] LABS: ESTIMATED AVERAGE GLUCOSE 126 mg/dL (70-100)
== END 2022-08-27 08:55 | disposition home or self-care (01) ==
LOC: DI 08:54
PROVIDERS: ATTEND Physician Assistant Medical
DX: I35.0 Nonrheumatic aortic (valve) stenosis (principal); R73.09 Other abnormal glucose; M81.0 Age-related osteoporosis without current pathological fracture; R41.3 Other amnesia; I35.2 Nonrheumatic aortic (valve) stenosis with insufficiency; Q21.12 Patent foramen ovale
CPT/HCPCS: 36415; 80053; 82306; 82607; 83036; 93306

== ENCOUNTER 2022-10-30 10:53 | Outpatient (CLI) | payer MEDICARE ==
--- NOTE | 2022-10-31 11:02 | Mammography Report ---
BILATERAL DIGITAL DIAGNOSTIC MAMMOGRAM 3D/2D: 10/30/2022 CLINICAL: Diffuse occasional left breast pain. Due for bilateral. Comparison is made to exams dated: 07/19/2015 mammogram, 12/29/2011 mammogram, and 12/31/2010 mammogra m - . There are scattered areas of fibroglandular density in both breasts (category b / 25%-50% glandular t issue). There are post surgical changes in the right breast from prior lumpectomy. Patient has diffuse, non-f ocal pain in the left outer breast, therefore no additional spot images are indicated. There are no s ignificant masses, calcifications, or other findings are seen in either breast. IMPRESSION: INCOMPLETE: NEEDS ADDITIONAL IMAGING EVALUATION 1) Status post right breast lumpectomy. No mammographic evidence of malignancy in the right breast. 2) Left breast non-focal pain in the upper outer and lower outer quadrant. No additional spot images are indicated given diffuse symptoms. No mammographic evidence of malignancy is seen in the left randell ast. However, further evaluation with targeted left breast ultrasound is recommended to evaluate area of clinical concern, which will immediately follow this exam. Based on the Tyrer Cuzick model (a risk assessment model) the patients lifetime risk is 0.5% and her 10 year risk is 0.0%. According to the ACR, ACS, and NCCN guidelines, an annual breast MRI exam jelani g with mammogram is recommended if the patients lifetime risk is 20% or greater. This exam was interpreted at Station ID: [id number]. NOTE: For mammograms, a report in lay terms will be sent to the patient. Approximately 15% of breast malignancies will not be visualized mammographically. In the management of a palpable breast mass, a negative mammogram must not discourage biopsy of a clinically suspicious lesion. Electronically Signed By: Celia Licona M.D. esb/:10/31/2022 10:54:12 Entry: - 10/31/2022 10:54:12 ACR BI-RADS Category 0: Incomplete 3340F PARENCHYMAL PATTERN: (A) - The breast(s) demonstrate(s) scattered fibroglandular densities. BI-RADS CATEGORY: (0) - 0 Unspecified - other recall n/a LATERALITY: (B)
--- NOTE | 2022-10-31 11:03 | Ultrasound Report ---
LIMITED ULTRASOUND OF LEFT BREAST: 10/30/2022 CLINICAL: Intermittent pain in left breast. Comparison is made to exams dated: 07/19/2015 mammogram, 12/31/2010 mammogram, and 12/29/2011 mammogra - [facility]. Color flow ultrasound of the left breast outer aspect was performed. Warren scale images of the real-t joshua examination were reviewed. No sonographic abnormality is seen in the areas of clinical concern in the upper outer and lower oute r left breast. [employer] Custodian images were taken at 12, 1, 2, 3, 4-5, and 6 o'clock, approximately 4 c m from the nipple. IMPRESSION: NEGATIVE No sonographic or mammographic evidence of malignancy in the area of clinical pain. A 1 year screening mammogram is recommended. Clinical follow up is also recommended, and further management of palpable abnormalities or other foc al signs or symptoms should be based on the results of clinical evaluation. If a palpable abnormality or other concerning symptoms persists or progresses, further evaluation should be considered. Findings and recommendations were conveyed to the patient at the time of imaging completion. This exam was interpreted at Station ID: [id number]. Electronically Signed By: Celia Licona M.D. esb/:10/31/2022 10:57:28 Entry: - 10/31/2022 10:57:28 Ultrasound BI-RADS: 1 Negative BI-RADS CATEGORY: (1) - 1 Mammogram [id number] 1 year screening LATERALITY: (B)
== END 2022-10-30 10:54 | disposition home or self-care (01) ==
LOC: DI 10:53
PROVIDERS: ATTEND Physician Assistant
DX: N64.4 Mastodynia (principal); C34.91 Malignant neoplasm of unspecified part of right bronchus or lung

== ENCOUNTER 2022-10-30 10:53 | Outpatient (CLI) | payer MEDICARE ==
--- NOTE | 2022-10-31 09:57 | CT Report ---
PROCEDURE: CHEST WO INDICATIONS: RIGHT LUNG CA TECHNIQUE: Noncontrast 1mm axial images were acquired from the pulmonary apices to the posterior costophrenic an gles. Axial 5 mm soft tissue kernel reconstructions were performed as well as 8 mm axial MIP and cor onal and sagittal 5 mm reformations. For radiation dose reduction, the following was used: automate d exposure control, adjustment of mA and/or kV according to patient size. COMPARISON: CT chest 11/04/2021 FINDINGS: Images are denoted as (series #/image #). Lymph nodes: No obvious evidence of thoracic lymphadenopathy however evaluation for mediastinal and h ilar adenopathy is limited in the absence of intravenous contrast. Vasculature: Aorta and main pulmonary artery diameters are within normal range. Heart: No pericardial effusion. Lung parenchyma and pleura: Postsurgical changes of the right lung, possible right lower lobectomy or partial right lower lobectomy. There is a background of emphysema as before. Multiple spiculated/irr egular masses are present, customer solutions representative lesions are as follows: -Medial left upper lobe: 3.6 cm (3/49) previously 2.0 cm. -Right lung apex: 2.5 cm (3/62) previously 2.6 cm remeasured. -Left upper lobe anterior: 1.3 cm (3/117) previously 1.1 cm remeasured. Other smaller nodules are similar to before. Similar trace right pleural effusion and/or pleural thic kening. Chest wall/musculoskeletal: Multilevel degenerative change of the visualized spine. Visualized upper abdomen: Newly apparent left upper quadrant mass interposed between the upper left k idney and stomach, approximately 6.4 x 4.9 cm (2/58). Possible visualization of the left adrenal glan d anterior to the mass, however the mass could be arising from the posterior aspect of the adrenal gl and. IMPRESSION: 1. Increase in size of the previously demonstrated spiculated nodule/mass at the left lung apex, high ly suspicious for neoplasm. 2. Newly apparent left upper quadrant abdominal mass, possibly arising from the adrenal gland but ind eterminate. The finding is suspicious for neoplasm such as metastatic disease. CT of the abdomen and pelvis could be obtained for further evaluation if clinically indicated. 3. Other findings as above. Reviewed by: Garry Anderson MD on 10/31/2022 9:56 AM PDT Approved by: Garry Anderson MD on 10/31/2022 9:56 AM PDT Station ID: [id number]
== END 2022-10-30 10:54 | disposition home or self-care (01) ==
LOC: DI 10:53
PROVIDERS: ATTEND Physician Assistant
DX: C34.91 Malignant neoplasm of unspecified part of right bronchus or lung (principal); N64.4 Mastodynia; R06.02 Shortness of breath; R19.00 Intra-abdominal and pelvic swelling, mass and lump, unspecified site; J43.9 Emphysema, unspecified; M47.819 Spondylosis without myelopathy or radiculopathy, site unspecified; R91.8 Other nonspecific abnormal finding of lung field

== ENCOUNTER 2022-11-21 09:16 | Emergency (ER) | payer MEDICARE ==
[2022-11-21 09:32] VITALS: BP 135/51; O2SAT 100
--- NOTE | 2022-11-21 09:52 | ED Physician Documentation ---
PD HPI LOWER EXT INJURY - Stated complaint Stated Complaint: RT FT INJ - Chief complaint Chief Complaint: Trauma Ext - History obtained from History obtained from: Patient, Family - Additional information Additional information: The patient comes to the emergency department chief complaint of right ankle pain and swelling after an injury yesterday. The patient states that she does not have good feeling in her left foot and this caused her to lose her balance while walking in her living room. She took several stumbling steps forward until she finally caught herself on another piece of furniture. She did not fall, but states that during the process of stumbling forward, she twisted her right ankle. She has been bearing weight on it but it hurts. She is also noticed a fair amount of swelling. The patient denies any prior history of injury to the her right ankle but did fracture her left ankle 7 years ago. No other complaints at this time. PD PAST MEDICAL HISTORY - Past Medical History Cardiovascular: Murmur, Valve disorder Respiratory: COPD, Shortness of breath Neuro: None Endocrine/Autoimmune: None GI: Colon polyps, Chronic constipation, Hemorrhoids, Other : None HEENT: Chronic vision loss, Chronic hearing loss Psych: None Musculoskeletal: Osteoarthritis Derm: Rosacea - Past Surgical History Past Surgical History: Yes General: Appendectomy, Colonoscopy, Other /FLIGHT DECK OFFICER: section, Hysterectomy, Other HEENT: Cataracts, Tonsil/Adenoidectomy - Present Medications Home Medications: Ambulatory Orders Medication Instructions Recorded Confirmed Multivitamin [Multivitamins] 1 each PO DAILY 11/26/15 05/19/22 Ascorbic Acid [Vitamin C] 1 tab PO DAILY 12/21/15 05/19/22 Cholecalciferol (Vitamin D3) 2,000 unit PO DAILY 12/21/15 05/19/22 [Vitamin D3] Ubidecarenone/Vit E Acet [Co Q-10 1 cap PO DAILY 06/07/18 05/19/22 100 mg Softgel] Alpha Lipoic Acid 200 mg PO DAILY 11/07/19 05/19/22 Vitamin B Complex 1 each PO DAILY 11/07/19 05/19/22 Fcvpawi-Yus-Kknz 1 tab PO DAILY 12/18/20 05/19/22 Eyebright 1 tab PO Q48H 12/18/20 05/19/22 Hydrocodone/Acetaminophen 0.5 tab PO Q6H PRN 01/31/21 05/19/22 [Hydrocodone-Acetamin 5-300 mg] polyethylene glycoL 3350 [Miralax] 17 gm PO QPM 01/31/21 05/19/22 Losartan Potassium 1 tab PO DAILY 03/25/21 05/19/22 HYDROcod/ACETAM 5/325 [Clare 5/325] 1 - 2 tablet PO Q6H PRN #14 tablet 11/21/22 - Allergies Allergies/Adverse Reactions: Allergies Allergy/AdvReac Type Severity Reaction Status Date / Time suture Allergy Intermediate Catgut: Verified 02/13/21 15:40 Pustules at site hexachlorophene Allergy blisters Verified 08/07/20 13:32 [From Phisohex] Penicillins Allergy Rash Verified 08/07/20 13:32 metronidazole [From Flagyl] AdvReac Nausea Verified 08/07/20 13:32 Metronidazole HCl * AdvReac Nausea Verified 08/07/20 13:32 [From Flagyl] Sulfa (Sulfonamide AdvReac Respiratory Verified 08/07/20 13:32 Antibiotics) - Social History Does the pt smoke?: Yes Smoking Status: Current every day smoker Does the pt drink ETOH?: No Does the pt have substance abuse?: No - Immunizations Immunizations are current?: No - POLST Patient has POLST: No PD ED PE NORMAL - Vitals Vital signs reviewed: Yes - General General: No acute distress, Well developed/nourished, Other (Alert and grossly oriented.) - HEENT HEENT: Atraumatic, PERRL, EOMI, Moist mucous membranes - Neck Neck: Supple, no meningeal sign - Cardiac Cardiac: Strong equal pulses - Respiratory Respiratory: No respiratory distress - Derm Derm: Normal color, Warm and dry, No rash - Extremities Extremities: No deformity, Other (Moderate edema right ankle.) - Neuro Neuro: Alert and oriented X 3, No motor deficit, No sensory deficit - Psych Psych: Normal mood, Normal affect Results - Vitals Vitals: Vital Signs - 24 hr 11/21/22 09:22 Temperature 36 C L Heart Rate 96 Respiratory 16 Rate Blood Pressure 135/51 H O2 Saturation 100 Oxygen O2 Source Room air - Rads (name of study) X-ray right ankle Relevant Findings:: Final report received, See rad report (Nondisplaced distal fibular fracture) Procedures - Splint (location) - Minor Right ankle Splint applied by: Physician Type of splint: Posterior, Stirrup Other: Patient tolerated well, No complications, Neurovascular intact, Good alignment, Other (Patient and family declined crutches, stating that a knee scooter would work better for the patient.) PD Medical Decision Making - ED course Complexity details: reviewed results, re-evaluated patient, considered differential, d/w patient, d/w family ED course: The patient was evaluated with an x-ray series of the right ankle. I discussed the findings of nondisplaced distal fibular fracture with the patient and her daughter. The patient's been placed in a posterior mold splint with stirrups. She is unable to use crutches, she states, so the daughter has called the [employer] and found a knee scooter for the patient, which she will get immediately after leaving here. I have prescribed analgesia for the patient. They have been instructed to call orthopedics this afternoon and have been given contact information for the clinic. Departure - Departure Disposition: 01 Home, Self Care Clinical Impression: Fracture of distal fibula Qualifiers: Encounter type: initial encounter Fracture type: closed Fracture morphology: other fracture Laterality: right Qualified Code(s): S82.831A - Other fracture of upper and lower end of right fibula, initial encounter for closed fracture Condition: Stable Instructions: ED Fx Ankle Lateral Malleolus Follow-Up: Kamar Jo MD [Provider Admit Priv/Credential] - Prescriptions: HYDROcod/ACETAM 5/325 [Clare 5/325] 1 - 2 tablet PO Q6H PRN #14 tablet PRN Reason: Pain Comments: Your x-ray shows a break at the bottom of your fibula, the smaller of your to lower leg bones. The break is right where you are outside ankle "bump" is. This is a small fracture and will heal well with immobilization, but you will need to bear no weight on the foot until cleared to do so by orthopedics. Please call today to make a follow-up appointment with the orthopedic designer, preferably within the next week. They may switch you to a walking boot or they may decide to cast your ankle, depending on their assessment of your particular case. For now, since you cannot use crutches, you should get a knee scooter so that you can get around without walking on the injured ankle. A prescription for hydrocodone has been electronically transmitted to the [facility] pharmacy in [place]. Forms: PCP List Discharge Date/Time: 11/21/22 11:49
--- NOTE | 2022-11-21 10:19 | XRAY Report ---
PROCEDURE: Ankle 3 View RT INDICATIONS: injury/pain TECHNIQUE: 3 views of the ankle were acquired. COMPARISON: None. FINDINGS: Bones: Nondisplaced distal fibular fracture. Tibiotalar joint space alignment is maintained. Soft tissues: Lateral malleolar edema. Achilles tendon appears normal. IMPRESSION: Nondisplaced distal fibular fracture. Reviewed by: Yovana Sims MD on 11/21/2022 10:17 AM PDT Approved by: Yovana Sims MD on 11/21/2022 10:17 AM PDT Station ID: [id number]
== END 2022-11-21 11:49 | disposition home or self-care (01) ==
LOC: ED 09:16
DX: S82.831A Other fracture of upper and lower end of right fibula, initial encounter for closed fracture (principal); W01.0XXA Fall on same level from slipping, tripping and stumbling without subsequent striking against object, initial encounter; Y92.008 Other place in unspecified non-institutional (private) residence as the place of occurrence of the external cause; F17.200 Nicotine dependence, unspecified, uncomplicated
CPT/HCPCS: 29515; 99283

== ENCOUNTER 2022-11-27 08:00 | Outpatient (CLI) | payer MEDICARE ==
--- NOTE | 2022-11-27 13:57 | XRAY Report ---
PROCEDURE: Ankle 3 View RT INDICATIONS: RIGHT ANKLE FRACTURE TECHNIQUE: 3 views of the ankle were acquired. COMPARISON: 11/21/2022 FINDINGS: Bones: Redemonstrated acute minimally displaced lateral malleolus fracture. Alignment is not signifi cantly changed. Calcification about present adjacent to the fracture plane likely developing bony margret mike. Soft tissues: Decreased lateral ankle soft tissue swelling. IMPRESSION: No significant change in alignment of the lateral malleolus fracture. Reviewed by: Garry Anderson MD on 11/27/2022 1:56 PM PDT Approved by: Garry Anderson MD on 11/27/2022 1:56 PM PDT Station ID: [id number]
== END 2022-11-27 23:59 | disposition home or self-care (01) ==
LOC: DI.WOS 08:00
PROVIDERS: ATTEND Physician Assistant Surgical
DX: S82.61XD Displaced fracture of lateral malleolus of right fibula, subsequent encounter for closed fracture with routine healing (principal)